=== PATIENT | female | born 1940 | race American Indian/Alaskan Native ===

== ENCOUNTER 2017-11-07 15:05 | Inpatient (IN) | payer MEDICARE ==
[2017-11-07 17:52] LABS: Basophils % (Auto) 0.5 % (0.0-1.8); Eosinophils # (Auto) 0.1 K/mm3 (0.0-0.4); Eosinophils % (Auto) 1.3 % (0.0-4.3); Hematocrit 24.2 % (30.3-42.9); Hemoglobin 7.6 gm/dl (10.1-14.3); Lymphocytes # (Auto) 2.4 K/mm3 (1.2-5.4); Lymphocytes % (Auto) 22.7 % (13.4-35.0); Mean Corpuscular HGB Conc 31 % (30-34); Mean Corpuscular Volume 77 fl (79-97); Monocytes # (Auto) 0.5 K/mm3 (0.0-0.8); Monocytes % (Auto) 5.1 % (0.0-7.3); Platelet Count 351 K/mm3 (140-440); Red Blood Count 3.14 M/mm3 (3.65-5.03)
[2017-11-07 18:01] LABS: Albumin 2.8 g/dL (3.9-5); Calcium 8.4 mg/dL (8.4-10.2)
[2017-11-07 18:03] LABS: Mean Corpuscular Hemoglobin 24 pg (28-32)
[2017-11-07] MEDS: NACL 0.9% 1000 ML 1,000 ML IV SCH (18:05)
--- NOTE | 2017-11-07 22:58 | History and Physical Report ---
History of Present Illness Date of examination: 11/07/17 Date of admission: 11/07/17 16:12 Chief complaint: CC Right foot Gangrene-sent as direct admit History of present illness: YSLETA DEL SUR:77 y/o AAF with multiple medical problems including HTN IDDM HLD CHF PN and Chronic pain sent from Dr Rodriguez office for Gangrene of Rt Foot and Possible BKA.Rt foot wound ongoing for a long time.Now Black and Tendons ewxposed on the footwith severly diminished pulses.Not amenable to revascularization. No fever or chills Past History Past Medical History: diabetes, GERD, heart failure, hypertension, hyperlipidemia, PVD Past Surgical History: Other (Not available) Social history: lives with family, smoking, full code Family history: hypertension Medications and Allergies Allergies Allergy/AdvReac Type Severity Reaction Status Date / Time hydralazine Allergy Unknown Verified 11/07/17 14:52 insulin aspart [From Novolog] Allergy Itching Unverified 11/07/17 16:13 Penicillins AdvReac Unknown Unverified 11/07/17 14:44 Home Medications Medication Instructions Recorded Confirmed Last Taken Type Clonidine 0.2 mg PO TID 11/07/17 11/07/17 11/07/17 09:00 History Clopidogrel Bisulfate [Plavix] 75 mg PO DAILY 11/07/17 11/07/17 11/07/17 09:00 History Gabapentin [Neurontin] 100 mg PO BID 11/07/17 11/07/17 11/07/17 09:00 History Insulin Detemir [Levemir VIAL] 5 units SQ 1700 11/07/17 11/07/17 11/06/17 17:00 History Insulin NPH Hum/Reg Insulin Hm 20 unit SQ QAC 11/07/17 11/07/17 Unknown History [HumuLIN 70-30 Vial] Labetalol [Normodyne TAB] 300 mg PO DAILY 11/07/17 11/07/17 11/07/17 09:00 History Lovastatin 20 mg PO HS 11/07/17 11/07/17 11/06/17 21:00 History Metolazone 5 mg PO DAILY 11/07/17 11/07/17 11/07/17 09:00 History Oxycodone HCl/Acetaminophen 1 tab PO Q6H PRN 11/07/17 11/07/17 Unknown History [Percocet 10/325 mg] Pantoprazole [Protonix] 40 mg PO QDAY 11/07/17 11/07/17 11/07/17 09:00 History Torsemide [Demadex] 20 mg PO DAILY 11/07/17 11/07/17 11/07/17 09:00 History Active Meds: Active Medications Sodium Chloride (Nacl 0.9% 1000 Ml) 1,000 mls @ 75 mls/hr IV DIRECT GANGA Last Admin: 11/07/17 18:05 Dose: 75 mls/hr Review of Systems All systems: negative Constitutional: fatigue, weakness, malaise, no weight loss, no weight gain, no fever, no chills Ears, nose, mouth and throat: no hoarseness, no sore throat Breasts: no deferred Cardiovascular: no chest pain, no orthopnea, no palpitations, no rapid/ irregular heart beat, no edema, no syncope, no lightheadedness, no shortness of breath Respiratory: no cough, no cough with sputum, no excessive sputum, no hemoptysis , no shortness of breath, no dyspnea on exertion Gastrointestinal: no abdominal pain, no nausea, no vomiting, no diarrhea, no constipation, no change in bowel habits Genitourinary Female: no dysuria, no urinary frequency, no urgency, no stress incontinence Rectal: no pain Musculoskeletal: no neck stiffness, no neck pain, no shooting arm pain, no arm numbness/tingling, no low back pain Integumentary: darkening of skin (Rt foot), foot/leg ulcers (c/w Gangrene) Exam - Constitutional Vitals: Temp Pulse Resp BP Pulse Ox 98.0 F 77 16 149/58 99 11/07/17 17:42 11/07/17 17:42 11/07/17 17:42 11/07/17 17:42 11/07/17 17:42 General appearance: Present: no acute distress, well-nourished - EENT Eyes: Present: PERRL ENT: hearing intact, clear oral mucosa - Neck Neck: Present: supple, normal ROM - Respiratory Respiratory effort: normal Respiratory: bilateral: CTA - Cardiovascular Heart rate: 70 Rhythm: regular Heart Sounds: Present: S1 & S2. Absent: rub, click - Extremities Extremities: abnormal Extremity abnormal: ulceration, black, pulses diminished, other (Gangrenous changes in Rt FOot christy forefoot) Peripheral Pulses: within normal limits - Abdominal General gastrointestinal: Present: soft, non-tender, non-distended, normal bowel sounds Female genitourinary: Present: normal - Rectal Rectal Exam: deferred - Integumentary Integumentary: Present: clear, warm, dry - Musculoskeletal Musculoskeletal: gait normal, strength equal bilaterally - Psychiatric Psychiatric: appropriate mood/affect, intact judgment & insight - Neurologic Neurologic: CNII-XII intact, moves all extremities - Allied Health Allied health notes reviewed: nursing, case management Results - Labs CBC & Chem 7: 11/08/17 00:59 11/08/17 00:59 Labs: Laboratory Last Values WBC 10.6 K/mm3 (4.5-11.0) 11/07/17 17: RBC 3.14 M/mm3 (3.65-5.03) L 11/07/17 17:19 Hgb 7.6 gm/dl (10.1-14.3) L 11/07/17 17: Hct 24.2 % (30.3-42.9) L 11/07/17 17:19 MCV 77 fl (79-97) L 11/07/17 17:19 MCH 24 pg (28-32) L 11/07/17 17:19 MCHC 31 % (30-34) 11/07/17 17:19 RDW 18.0 % (13.2-15.2) H 11/07/17 17:19 Plt Count 351 K/mm3 (140-440) 11/07/17 17:19 Lymph % (Auto) 22.7 % (13.4-35.0) 11/07/17 17:19 [place] % (Auto) 5.1 % (0.0-7.3) 11/07/17 17:19 Eos % (Auto) 1.3 % (0.0-4.3) 11/07/17 17:19 Baso % (Auto) 0.5 % (0.0-1.8) 11/07/17 17:19 Lymph # 2.4 K/mm3 (1.2-5.4) 11/07/17 17:19 [place] # 0.5 K/mm3 (0.0-0.8) 11/07/17 17:19 Eos # 0.1 K/mm3 (0.0-0.4) 11/07/17 17:19 Baso # 0.0 K/mm3 (0.0-0.1) 11/07/17 17:19 Seg Neutrophils % 70.4 % (40.0-70.0) H 11/07/17 17:19 Seg Neutrophils # 7.4 K/mm3 (1.8-7.7) 11/07/17 17:19 Sodium 129 mmol/L (137-145) L 11/07/17 17:15 Potassium 5.4 mmol/L (3.6-5.0) H 11/07/17 17:15 Chloride 92.3 mmol/L (98-107) L 11/07/17 17:15 Carbon Dioxide 25 mmol/L (22-30) 11/07/17 17:15 Anion Gap 17 mmol/L 11/07/17 17:15 BUN 21 mg/dL (7-17) H 11/07/17 17:15 Creatinine 1.8 mg/dL (0.7-1.2) H 11/07/17 17:15 Estimated GFR 33 ml/min 11/07/17 17:15 BUN/Creatinine Ratio 12 % 11/07/17 17:15 Glucose 359 mg/dL (65-100) H 11/07/17 17:15 POC Glucose 329 (70-105) H 11/07/17 17:52 Calcium 8.4 mg/dL (8.4-10.2) 11/07/17 17:15 Total Bilirubin 0.30 mg/dL (0.1-1.2) 11/07/17 17:15 AST 11 units/L (5-40) 11/07/17 17:15 ALT 9 units/L (7-56) 11/07/17 17:15 Alkaline Phosphatase 177 units/L (35-129) H 11/07/17 17:15 Total Protein 6.6 g/dL (6.3-8.2) 11/07/17 17:15 Albumin 2.8 g/dL (3.9-5) L 11/07/17 17:15 Albumin/Globulin Ratio 0.7 % 11/07/17 17:15 Assessment and Plan Advance Directives: Yes (Full code) VTE prophylaxis?: Chemical Plan of care discussed with patient/family: Yes - Patient Problems (1) Gangrene of right foot Current Visit: Yes Status: Acute Plan to address problem: Needs BKA Will defer to vascular surgery ID and Vascular surgery requested (2) Anemia Current Visit: Yes Status: Chronic Qualifiers: Anemia type: unspecified type Qualified Code(s): D64.9 - Anemia, unspecified Plan to address problem: Transfuse one unit for possible surgery (3) PAD (peripheral artery disease) Current Visit: Yes Status: Chronic Plan to address problem: Severe Vascular surgery consulted (4) IDDM (insulin dependent diabetes mellitus) Current Visit: Yes Status: Chronic Plan to address problem: Cont Insulin and coverage Check A1c (5) HTN (hypertension) Current Visit: Yes Status: Chronic Qualifiers: Hypertension type: essential hypertension Qualified Code(s): I10 - Essential (primary) hypertension Plan to address problem: Cont antihypertensives (6) GERD (gastroesophageal reflux disease) Current Visit: Yes Status: Chronic Qualifiers: Esophagitis presence: without esophagitis Qualified Code(s): K21.9 - Gastro -esophageal reflux disease without esophagitis Plan to address problem: Cont PPI's (7) CHF (congestive heart failure) Current Visit: Yes Status: Chronic Qualifiers: Heart failure type: combined systolic and diastolic Plan to address problem: Cont Torsemide (8) CAD (coronary artery disease) Current Visit: Yes Status: Chronic Qualifiers: Coronary Disease-Associated Artery/Lesion type: [place] artery [place] vs. transplanted heart: [place] heart Plan to address problem: will hold plavix for possible surgery (9) Peripheral neuropathy Current Visit: Yes Status: Chronic Qualifiers: Peripheral neuropathy type: polyneuropathy, unspecified Qualified Code(s): G62.9 - Polyneuropathy, unspecified Plan to address problem: Cont Gabapentin (10) Chronic pain Current Visit: Yes Status: Chronic Qualifiers: Chronic pain type: chronic pain syndrome Qualified Code(s): G89.4 - Chronic pain syndrome Plan to address problem: Cont Analgesics (11) DVT prophylaxis Current Visit: Yes Status: Acute Plan to address problem: On Heparin
[2017-11-08] MEDS ORDERED: NON-FORMULARY (Oxycodone Hcl/Acetaminophen [Percocet 10/325 Mg] 1 TAB) PO PRN (00:36)
[2017-11-08] MEDS ORDERED: TYLENOL PO PRN (00:38)
[2017-11-08] MEDS ORDERED: SODIUM CHLORIDE FLUSH SYRINGE 10 ML IV PRN (00:38)
[2017-11-08] MEDS ORDERED: ZOFRAN IV PRN (00:38)
[2017-11-08] MEDS ORDERED: AMBIEN PO PRN (00:38)
[2017-11-08] MEDS ORDERED: NACL 0.9% 500 ML 500 ML IV ONE (00:49)
[2017-11-08] MEDS ORDERED: MORPHINE IV PRN (00:54)
[2017-11-08] MEDS ORDERED: ROXICODONE PO PRN (00:57)
[2017-11-08] MEDS ORDERED: VANCOMYCIN PHARMACY TO DOSE IV SCH (01:00)
[2017-11-08] MEDS: NEURONTIN PO SCH ×4 (01:20→22:44)
[2017-11-08] MEDS: DILAUDID IV PRN (01:21)
[2017-11-08] MEDS ORDERED: VANCOMYCIN 1,500 MG in NACL 0.9% 500 ML 500 ML IV ONE (01:30)
[2017-11-08 01:47] LABS: Albumin 2.9 g/dL (3.9-5); Calcium 8.2 mg/dL (8.4-10.2)
[2017-11-08 01:53] LABS: Basophils % (Auto) 0.2 % (0.0-1.8); Eosinophils # (Auto) 0.3 K/mm3 (0.0-0.4); Eosinophils % (Auto) 2.5 % (0.0-4.3); Hematocrit 23.8 % (30.3-42.9); Hemoglobin 7.7 gm/dl (10.1-14.3); Lymphocytes # (Auto) 3.3 K/mm3 (1.2-5.4); Lymphocytes % (Auto) 32.7 % (13.4-35.0); Mean Corpuscular HGB Conc 33 % (30-34); Mean Corpuscular Volume 75 fl (79-97); Monocytes # (Auto) 0.7 K/mm3 (0.0-0.8); Monocytes % (Auto) 6.7 % (0.0-7.3); Platelet Count 348 K/mm3 (140-440); Red Blood Count 3.16 M/mm3 (3.65-5.03); Red Cell Distribution Width 17.8 % (13.2-15.2)
[2017-11-08 02:28] LABS: Mean Corpuscular Hemoglobin 25 pg (28-32)
[2017-11-08] MEDS ORDERED: NON-FORMULARY (Clonidine 0.2 MG) PO SCH (08:00)
--- NOTE | 2017-11-08 08:34 | Progress Note ---
Assessment and Plan 1) Gangrene of right foot Current Visit: Yes Status: Acute Plan to address problem: Local wound care. wound Cx IV antibiotic with Levaquin and Vanc Needs BKA Will defer to vascular surgery ID and Vascular surgery consulted (2) Anemia Current Visit: Yes Status: Chronic Qualifiers: Anemia type: unspecified type Qualified Code(s): D64.9 - Anemia, unspecified Plan to address problem: Transfused one unit for possible surgery. Post xfusion H and H (3) PAD (peripheral artery disease) Current Visit: Yes Status: Chronic Plan to address problem: Severe Vascular surgery consulted (4) IDDM (insulin dependent diabetes mellitus) Current Visit: Yes Status: Chronic Plan to address problem: ADA diet Cont Insulin and coverage Check A1c (5) HTN (hypertension) Current Visit: Yes Status: Chronic Qualifiers: Hypertension type: essential hypertension Qualified Code(s): I10 - Essential (primary) hypertension Plan to address problem: Cont antihypertensives (6) GERD (gastroesophageal reflux disease) Current Visit: Yes Status: Chronic Qualifiers: Esophagitis presence: without esophagitis Qualified Code(s): K21.9 - Gastro -esophageal reflux disease without esophagitis Plan to address problem: Cont PPI's (7) CHF (congestive heart failure) Current Visit: Yes Status: Chronic Qualifiers: Heart failure type: combined systolic and diastolic Plan to address problem: Cont Torsemide (8) CAD (coronary artery disease) Current Visit: Yes Status: Chronic Qualifiers: Coronary Disease-Associated Artery/Lesion type: [place] artery [place] vs. transplanted heart: [place] heart Plan to address problem: will hold plavix for possible surgery (9) Peripheral neuropathy Current Visit: Yes Status: Chronic Qualifiers: Peripheral neuropathy type: polyneuropathy, unspecified Qualified Code(s): G62.9 - Polyneuropathy, unspecified Plan to address problem: Cont Gabapentin (10) Chronic pain Current Visit: Yes Status: Chronic Qualifiers: Chronic pain type: chronic pain syndrome Qualified Code(s): G89.4 - Chronic pain syndrome Plan to address problem: Cont Analgesics (11) DVT prophylaxis Current Visit: Yes Status: Acute Plan to address problem: On Heparin Subjective Date of service: 11/08/17 Principal diagnosis: Gnagrene right foot, DM, PAD Interval history: No new complaint. Pt lying quietly in bed with her daughter in the room. Review laboratory and radiological data Objective - Constitutional Vitals: Vital Signs - 12hr 11/08/17 11/08/17 11/08/17 00:00 00:11 04:18 Temperature 98.3 F 98.0 F Pulse Rate 95 H 85 Respiratory 20 20 Rate Blood Pressure 156/73 153/63 O2 Sat by Pulse 99 99 Oximetry 11/08/17 07:42 Temperature 99.0 F Pulse Rate 82 Respiratory 18 Rate Blood Pressure 140/56 O2 Sat by Pulse 97 Oximetry General appearance: Present: no acute distress, well-nourished - EENT Eyes: PERRL, EOM intact - Neck Neck: supple, normal ROM - Respiratory Respiratory effort: normal Respiratory: bilateral: CTA - Cardiovascular Rhythm: regular Heart Sounds: Present: S1 & S2. Absent: gallop, rub Extremities: pulses intact, No edema, normal color, Full ROM - Gastrointestinal General gastrointestinal: Present: soft, non-tender, non-distended, normal bowel sounds - Integumentary Integumentary: clear, warm, dry - Musculoskeletal Musculoskeletal: 1, strength equal bilaterally - Neurologic Neurologic: moves all extremities - Psychiatric Psychiatric: memory intact, appropriate mood/affect, intact judgment & insight - Labs CBC & Chem 7: 11/08/17 00:59 11/08/17 00:59 Labs: Abnormal lab results 11/07/17 11/07/17 11/07/17 Range/Units 17:15 17:19 17:52 RBC 3.14 L (3.65-5.03) M/mm3 Hgb 7.6 L (10.1-14.3) gm/dl Hct 24.2 L (30.3-42.9) % MCV 77 L (79-97) fl MCH 24 L (28-32) pg RDW 18.0 H (13.2-15.2) % Seg Neutrophils % 70.4 H (40.0-70.0) % Sodium 129 L (137-145) mmol/L Potassium 5.4 H (3.6-5.0) mmol/L Chloride 92.3 L (98-107) mmol/L BUN 21 H (7-17) mg/dL Creatinine 1.8 H (0.7-1.2) mg/dL Glucose 359 H (65-100) mg/dL POC Glucose 329 H (70-105) Hemoglobin A1c (4-6) % Calcium (8.4-10.2) mg/dL Alkaline Phosphatase 177 H (35-129) units/L Total Protein (6.3-8.2) g/dL Albumin 2.8 L (3.9-5) g/dL Crossmatch 11/08/17 11/08/17 11/08/17 Range/Units 00:49 00:59 00:59 RBC 3.16 L (3.65-5.03) M/mm3 Hgb 7.7 L (10.1-14.3) gm/dl Hct 23.8 L (30.3-42.9) % MCV 75 L (79-97) fl MCH 25 L (28-32) pg RDW 17.8 H (13.2-15.2) % Seg Neutrophils % (40.0-70.0) % Sodium 133 L (137-145) mmol/L Potassium 5.1 H (3.6-5.0) mmol/L Chloride 94.6 L (98-107) mmol/L BUN 21 H (7-17) mg/dL Creatinine 1.9 H (0.7-1.2) mg/dL Glucose 128 H (65-100) mg/dL POC Glucose 176 H (70-105) Hemoglobin A1c (4-6) % Calcium 8.2 L (8.4-10.2) mg/dL Alkaline Phosphatase 172 H (35-129) units/L Total Protein 6.1 L (6.3-8.2) g/dL Albumin 2.9 L (3.9-5) g/dL Crossmatch 11/08/17 11/08/17 Range/Units 00:59 00:59 RBC (3.65-5.03) M/mm3 Hgb (10.1-14.3) gm/dl Hct (30.3-42.9) % MCV (79-97) fl MCH (28-32) pg RDW (13.2-15.2) % Seg Neutrophils % (40.0-70.0) % Sodium (137-145) mmol/L Potassium (3.6-5.0) mmol/L Chloride (98-107) mmol/L BUN (7-17) mg/dL Creatinine (0.7-1.2) mg/dL Glucose (65-100) mg/dL POC Glucose (70-105) Hemoglobin A1c 10.2 H (4-6) % Calcium (8.4-10.2) mg/dL Alkaline Phosphatase (35-129) units/L Total Protein (6.3-8.2) g/dL Albumin (3.9-5) g/dL Crossmatch See Detail
[2017-11-08] MEDS: CATAPRES PO SCH ×3 (08:43→22:44)
[2017-11-08] MEDS: PERCOCET 5/325 PO PRN (08:45)
--- NOTE | 2017-11-08 09:10 | Event Note ---
Date: 11/08/17 Patient is followed by [facility]. Hearing Stenographer and the nurse was informed to call the above group.
[2017-11-08] MEDS ORDERED: LEVAQUIN 750MG/150ML 750 MG/150 ML BAG IV SCH (10:00)
[2017-11-08] MEDS ORDERED: NON-FORMULARY (Metolazone 5 MG) PO SCH (10:00)
[2017-11-08] MEDS ORDERED: NON-FORMULARY (Torsemide [Demadex] 20 MG) PO SCH (10:00)
[2017-11-08] MEDS: LEVAQUIN 750MG/150ML 750 MG/150 ML BAG IV SCH (10:06)
[2017-11-08] MEDS: PROTONIX PO SCH (10:10)
[2017-11-08] MEDS: ZAROXOLYN PO SCH (10:10)
[2017-11-08] MEDS: SODIUM CHLORIDE FLUSH SYRINGE 10 ML IV SCH ×2 (10:11→22:48)
[2017-11-08] MEDS: DEMADEX PO SCH ×2 (10:11→10:30)
[2017-11-08] MEDS: NORMODYNE PO SCH (10:26)
--- NOTE | 2017-11-08 11:58 | Consultation ---
History of Present Illness - Reason for Consult Consult date: 11/08/17 right foot gangrene Requesting physician: EMMA SEBASTIAN - History of Present Illness 77 years old female with history of HTN, DM2, CHF, PVD s/p revascularization 2 weeks ago; sent from Dr Rodriguez office for Gangrene of Rt Foot and Possible BKA. Initial necrotic changes started back in Jun 2017. Wound is now black extending to the whole forefoot and tendon exposure. The patient and daughter, patient has not been any fever, chills, nausea, vomiting, diarrhea. In the emergency room, initial temperature was 98, heart rate 77, respirations 16, blood pressure 149/58. Initial white count 10.6. Hemoglobin 7.6. Platelets 351. Creatinine 1.8. A1c 10.2. Sodium 129. Microbiology: none Current Antimicrobials: Levaquin Vancomycin Previous Antimicrobials: Past History Past Medical History: diabetes, GERD, heart failure, hypertension, hyperlipidemia, PVD Past Surgical History: Other (Not available) Social history: lives with family, smoking, full code Family history: hypertension Medications and Allergies Allergies Allergy/AdvReac Type Severity Reaction Status Date / Time hydralazine Allergy Unknown Verified 11/07/17 14:52 insulin aspart [From Novolog] Allergy Itching Unverified 11/07/17 16:13 Penicillins AdvReac Unknown Unverified 11/07/17 14:44 Home Medications Medication Instructions Recorded Confirmed Last Taken Type Clonidine 0.2 mg PO TID 11/07/17 11/07/17 11/07/17 09:00 History Clopidogrel Bisulfate [Plavix] 75 mg PO DAILY 11/07/17 11/07/17 11/07/17 09:00 History Gabapentin [Neurontin] 100 mg PO BID 11/07/17 11/07/17 11/07/17 09:00 History Insulin Detemir [Levemir VIAL] 5 units SQ 1700 11/07/17 11/07/17 11/06/17 17:00 History Insulin NPH Hum/Reg Insulin Hm 20 unit SQ QAC 11/07/17 11/07/17 Unknown History [HumuLIN 70-30 Vial] Labetalol [Normodyne TAB] 300 mg PO DAILY 11/07/17 11/07/17 11/07/17 09:00 History Lovastatin 20 mg PO HS 11/07/17 11/07/1718 21:00 History Metolazone 5 mg PO DAILY 11/07/17 11/07/17 11/07/17 09:00 History Oxycodone HCl/Acetaminophen 1 tab PO Q6H PRN 11/07/17 11/07/17 Unknown History [Percocet 10/325 mg] Pantoprazole [Protonix] 40 mg PO QDAY 11/07/17 11/07/17 11/07/17 09:00 History Torsemide [Demadex] 20 mg PO DAILY 11/07/17 11/07/17 11/07/17 09:00 History Active Meds: Active Medications Acetaminophen (Tylenol) 650 mg PO Q4H PRN PRN Reason: Pain MILD(1-3)/Fever >100.5/RONDON Clonidine HCl (Catapres) 0.2 mg PO TID [facility] Last Admin: 11/08/17 08:43 Dose: 0.2 mg Gabapentin (Neurontin) 100 mg PO BID [facility] Last Admin: 11/08/17 10:30 Dose: Not Given Hydromorphone HCl (Dilaudid) 1 mg IV Q3H PRN PRN Reason: Pain , Severe (7-10) Last Admin: 11/08/17 01:21 Dose: 1 mg Sodium Chloride (Nacl 0.9% 1000 Ml) 1,000 mls @ 75 mls/hr IV DIRECT GANGA Last Admin: 11/07/17 18:05 Dose: 75 mls/hr Levofloxacin/Dextrose (Levaquin 750mg/150ml) 750 mg in 150 mls @ 100 mls/hr IV Q48HR [facility]; Protocol Last Admin: 11/08/17 10:06 Dose: 100 mls/hr Insulin Glargine (Lantus) 20 units SUB-Q QHS [facility] Labetalol HCl (Normodyne) 300 mg PO DAILY [facility] Last Admin: 11/08/17 10:26 Dose: 300 mg Metolazone (Zaroxolyn) 5 mg PO QDAY [facility] Last Admin: 11/08/17 10:10 Dose: 5 mg Morphine Sulfate (Morphine) 2 mg IV Q4H PRN PRN Reason: Pain, Moderate (4-6) Ondansetron HCl (Zofran) 4 mg IV Q8H PRN PRN Reason: Nausea And Vomiting Last Admin: 11/08/17 10:18 Dose: 4 mg Oxycodone HCl (Roxicodone) 5 mg PO Q6H PRN PRN Reason: Pain, Moderate (4-6) Oxycodone/Acetaminophen (Percocet 5/325) 1 tab PO Q6H PRN PRN Reason: Pain, Moderate (4-6) Last Admin: 11/08/17 08:45 Dose: 1 tab Pantoprazole Sodium (Protonix) 40 mg PO QDAY GANGA Last Admin: 11/08/17 10:10 Dose: 40 mg Pravastatin Sodium (Pravachol) 20 mg PO QHS GANGA Sodium Chloride (Sodium Chloride Flush Syringe 10 Ml) 10 ml IV PRN PRN PRN Reason: LINE FLUSH Sodium Chloride (Sodium Chloride Flush Syringe 10 Ml) 10 ml IV BID [facility] Last Admin: 11/08/17 10:11 Dose: 10 ml Torsemide (Demadex) 20 mg PO DAILY GANGA Vancomycin HCl (Vancomycin Pharmacy To Dose) 1 each IV PKCONSULT GANGA; Protocol Zolpidem Tartrate (Ambien) 5 mg PO QHS PRN PRN Reason: Insomnia Review of Systems All systems: negative (as per HPI Rest of 10 point review of systems negative) Physical Examination - Physical Exam Narrative exam: General appearance: Alert in NAD, conversant Eyes: anicteric sclerae, moist conjunctivae; no lid-lag; PERRLA HENT: Atraumatic; oropharynx clear Neck: Trachea midline; supple, no thyromegaly or lymphadenopathy Lungs: CTA, with normal respiratory effort and no intercostal retractions CV: RRR, no murmurs Abdomen: Soft, non-tender; no masses or hepatosplenomegaly Extremities: right fore foot severe necrotic changes involving all toes and forefoot dry gangrene appearance. No drainage. No pulses Skin: Normal temperature, turgor and texture; no rash, ulcers or subcutaneous nodules Psych: Appropriate affect, alert and oriented to person, place and time. Neuro: alert and oriented x 3. Moving all extermities Lines: No CVL / PICC - Constitutional Vitals: Vital Signs Temp Pulse Resp BP Pulse Ox 99.0 F 84 20 157/50 97 11/08/17 07:42 11/08/17 10:26 11/08/17 10:00 11/08/17 10:26 11/08/17 10:00 Temperature -Last 24 Hours Temperature 99.0 F Temperature 98.0 F Temperature 98.3 F Temperature 98.0 F Results - Labs CBC & Chem 7: 11/08/17 00:59 11/08/17 00:59 Labs: Abnormal lab results 11/07/17 11/07/17 11/07/17 Range/Units 17:15 17:19 17:52 RBC 3.14 L (3.65-5.03) M/mm3 Hgb 7.6 L (10.1-14.3) gm/dl Hct 24.2 L (30.3-42.9) % MCV 77 L (79-97) fl MCH 24 L (28-32) pg RDW 18.0 H (13.2-15.2) % Seg Neutrophils % 70.4 H (40.0-70.0) % Sodium 129 L (137-145) mmol/L Potassium 5.4 H (3.6-5.0) mmol/L Chloride 92.3 L (98-107) mmol/L BUN 21 H (7-17) mg/dL Creatinine 1.8 H (0.7-1.2) mg/dL Glucose 359 H (65-100) mg/dL POC Glucose 329 H (70-105) Hemoglobin A1c (4-6) % Calcium (8.4-10.2) mg/dL Alkaline Phosphatase 177 H (35-129) units/L Total Protein (6.3-8.2) g/dL Albumin 2.8 L (3.9-5) g/dL Crossmatch 11/08/17 11/08/17 11/08/17 Range/Units 00:49 00:59 00:59 RBC 3.16 L (3.65-5.03) M/mm3 Hgb 7.7 L (10.1-14.3) gm/dl Hct 23.8 L (30.3-42.9) % MCV 75 L (79-97) fl MCH 25 L (28-32) pg RDW 17.8 H (13.2-15.2) % Seg Neutrophils % (40.0-70.0) % Sodium 133 L (137-145) mmol/L Potassium 5.1 H (3.6-5.0) mmol/L Chloride 94.6 L (98-107) mmol/L BUN 21 H (7-17) mg/dL Creatinine 1.9 H (0.7-1.2) mg/dL Glucose 128 H (65-100) mg/dL POC Glucose 176 H (70-105) Hemoglobin A1c (4-6) % Calcium 8.2 L (8.4-10.2) mg/dL Alkaline Phosphatase 172 H (35-129) units/L Total Protein 6.1 L (6.3-8.2) g/dL Albumin 2.9 L (3.9-5) g/dL Crossmatch 11/08/17 11/08/17 11/08/17 Range/Units 00:59 00:59 07:49 RBC (3.65-5.03) M/mm3 Hgb (10.1-14.3) gm/dl Hct (30.3-42.9) % MCV (79-97) fl MCH (28-32) pg RDW (13.2-15.2) % Seg Neutrophils % (40.0-70.0) % Sodium (137-145) mmol/L Potassium (3.6-5.0) mmol/L Chloride (98-107) mmol/L BUN (7-17) mg/dL Creatinine (0.7-1.2) mg/dL Glucose (65-100) mg/dL POC Glucose 228 H (70-105) Hemoglobin A1c 10.2 H (4-6) % Calcium (8.4-10.2) mg/dL Alkaline Phosphatase (35-129) units/L Total Protein (6.3-8.2) g/dL Albumin (3.9-5) g/dL Crossmatch See Detail 11/08/17 Range/Units 11:25 RBC (3.65-5.03) M/mm3 Hgb (10.1-14.3) gm/dl Hct (30.3-42.9) % MCV (79-97) fl MCH (28-32) pg RDW (13.2-15.2) % Seg Neutrophils % (40.0-70.0) % Sodium (137-145) mmol/L Potassium (3.6-5.0) mmol/L Chloride (98-107) mmol/L BUN (7-17) mg/dL Creatinine (0.7-1.2) mg/dL Glucose (65-100) mg/dL POC Glucose 288 H (70-105) Hemoglobin A1c (4-6) % Calcium (8.4-10.2) mg/dL Alkaline Phosphatase (35-129) units/L Total Protein (6.3-8.2) g/dL Albumin (3.9-5) g/dL Crossmatch Assessment and Plan Assessment: 1) Right forefoot dry gangrene: from severe PVD 2) DM-uncontrolled 3) JESU 4) Anemai 5) Hyponatremia Plan: -continue levaquin -stop vanco in view of JESU -start IV clinda -needs BKA Thank you for your consultation, will follow up with you. Sylvia Myers MD Infectious Diseases Specialist [facility] ([facility] M [phone] O [phone]
--- NOTE | 2017-11-08 12:06 | Consultation ---
History of Present Illness - Reason for Consult Consult date: 11/08/17 (consult dictated) Past History Past Medical History: diabetes, GERD, heart failure, hypertension, hyperlipidemia, PVD Past Surgical History: Other (Not available) Social history: lives with family, smoking, full code Family history: hypertension Medications and Allergies Allergies Allergy/AdvReac Type Severity Reaction Status Date / Time hydralazine Allergy Unknown Verified 11/07/17 14:52 insulin aspart [From Novolog] Allergy Itching Verified 11/08/17 14:25 Penicillins AdvReac Unknown Verified 11/08/17 14:25 Home Medications Medication Instructions Recorded Confirmed Last Taken Type Clonidine 0.2 mg PO TID 11/07/17 11/07/17 11/07/17 09:00 History Clopidogrel Bisulfate [Plavix] 75 mg PO DAILY 11/07/17 11/07/17 11/07/17 09:00 History Gabapentin [Neurontin] 100 mg PO BID 11/07/17 11/07/17 11/07/17 09:00 History Insulin Detemir [Levemir VIAL] 5 units SQ 1700 11/07/17 11/07/17 11/06/17 17:00 History Insulin NPH Hum/Reg Insulin Hm 20 unit SQ QAC 11/07/17 11/07/17 Unknown History [HumuLIN 70-30 Vial] Labetalol [Normodyne TAB] 300 mg PO DAILY 11/07/17 11/07/17 11/07/17 09:00 History Lovastatin 20 mg PO HS 11/07/17 11/07/17 11/06/17 21:00 History Metolazone 5 mg PO DAILY 11/07/17 11/07/17 11/07/17 09:00 History Oxycodone HCl/Acetaminophen 1 tab PO Q6H PRN 11/07/17 11/07/17 Unknown History [Percocet 10/325 mg] Pantoprazole [Protonix] 40 mg PO QDAY 11/07/17 11/07/17 11/07/17 09:00 History Torsemide [Demadex] 20 mg PO DAILY 11/07/17 11/07/17 11/07/17 09:00 History Lactulose [Cephulac] 20 gm PO BID 11/08/17 11/08/17 Unknown History Active Meds: Active Medications Acetaminophen (Tylenol) 650 mg PO Q4H PRN PRN Reason: Pain MILD(1-3)/Fever >100.5/RONDON Clonidine HCl (Catapres) 0.2 mg PO TID [facility] Last Admin: 11/08/17 08:43 Dose: 0.2 mg Gabapentin (Neurontin) 100 mg PO BID [facility] Last Admin: 11/08/17 10:30 Dose: Not Given Hydromorphone HCl (Dilaudid) 1 mg IV Q3H PRN PRN Reason: Pain , Severe (7-10) Last Admin: 11/08/17 01:21 Dose: 1 mg Sodium Chloride (Nacl 0.9% 1000 Ml) 1,000 mls @ 75 mls/hr IV DIRECT [facility] Last Admin: 11/07/17 18:05 Dose: 75 mls/hr Levofloxacin/Dextrose (Levaquin 750mg/150ml) 750 mg in 150 mls @ 100 mls/hr IV Q48HR [facility]; Protocol Last Admin: 11/08/17 10:06 Dose: 100 mls/hr Insulin Glargine (Lantus) 20 units SUB-Q QHS [facility] Labetalol HCl (Normodyne) 300 mg PO DAILY [facility] Last Admin: 11/08/17 10:26 Dose: 300 mg Metolazone (Zaroxolyn) 5 mg PO QDAY [facility] Last Admin: 11/08/17 10:10 Dose: 5 mg Morphine Sulfate (Morphine) 2 mg IV Q4H PRN PRN Reason: Pain, Moderate (4-6) Ondansetron HCl (Zofran) 4 mg IV Q8H PRN PRN Reason: Nausea And Vomiting Last Admin: 11/08/17 10:18 Dose: 4 mg Oxycodone HCl (Roxicodone) 5 mg PO Q6H PRN PRN Reason: Pain, Moderate (4-6) Oxycodone/Acetaminophen (Percocet 5/325) 1 tab PO Q6H PRN PRN Reason: Pain, Moderate (4-6) Last Admin: 11/08/17 08:45 Dose: 1 tab Pantoprazole Sodium (Protonix) 40 mg PO QDAY [facility] Last Admin: 11/08/17 10:10 Dose: 40 mg Pravastatin Sodium (Pravachol) 20 mg PO QHS [facility] Sodium Chloride (Sodium Chloride Flush Syringe 10 Ml) 10 ml IV PRN PRN PRN Reason: LINE FLUSH Sodium Chloride (Sodium Chloride Flush Syringe 10 Ml) 10 ml IV BID [facility] Last Admin: 11/08/17 10:11 Dose: 10 ml Torsemide (Demadex) 20 mg PO DAILY [facility] Vancomycin HCl (Vancomycin Pharmacy To Dose) 1 each IV PKCONSULT [facility]; Protocol Zolpidem Tartrate (Ambien) 5 mg PO QHS PRN PRN Reason: Insomnia Exam - Constitutional Vitals: Temp Pulse Resp BP Pulse Ox 99.0 F 84 20 157/50 97 11/08/17 07:42 11/08/17 10:26 11/08/17 10:00 11/08/17 10:26 11/08/17 10:00 Results - Labs CBC & Chem 7: 11/08/17 00:59 11/08/17 00:59 Labs: Abnormal lab results 11/07/17 11/07/17 11/07/17 Range/Units 17:15 17:19 17:52 RBC 3.14 L (3.65-5.03) M/mm3 Hgb 7.6 L (10.1-14.3) gm/dl Hct 24.2 L (30.3-42.9) % MCV 77 L (79-97) fl MCH 24 L (28-32) pg RDW 18.0 H (13.2-15.2) % Seg Neutrophils % 70.4 H (40.0-70.0) % Sodium 129 L (137-145) mmol/L Potassium 5.4 H (3.6-5.0) mmol/L Chloride 92.3 L (98-107) mmol/L BUN 21 H (7-17) mg/dL Creatinine 1.8 H (0.7-1.2) mg/dL Glucose 359 H (65-100) mg/dL POC Glucose 329 H (70-105) Hemoglobin A1c (4-6) % Calcium (8.4-10.2) mg/dL Alkaline Phosphatase 177 H (35-129) units/L Total Protein (6.3-8.2) g/dL Albumin 2.8 L (3.9-5) g/dL Crossmatch 11/08/17 11/08/17 11/08/17 Range/Units 00:49 00:59 00:59 RBC 3.16 L (3.65-5.03) M/mm3 Hgb 7.7 L (10.1-14.3) gm/dl Hct 23.8 L (30.3-42.9) % MCV 75 L (79-97) fl MCH 25 L (28-32) pg RDW 17.8 H (13.2-15.2) % Seg Neutrophils % (40.0-70.0) % Sodium 133 L (137-145) mmol/L Potassium 5.1 H (3.6-5.0) mmol/L Chloride 94.6 L (98-107) mmol/L BUN 21 H (7-17) mg/dL Creatinine 1.9 H (0.7-1.2) mg/dL Glucose 128 H (65-100) mg/dL POC Glucose 176 H (70-105) Hemoglobin A1c (4-6) % Calcium 8.2 L (8.4-10.2) mg/dL Alkaline Phosphatase 172 H (35-129) units/L Total Protein 6.1 L (6.3-8.2) g/dL Albumin 2.9 L (3.9-5) g/dL Crossmatch 11/08/17 11/08/17 11/08/17 Range/Units 00:59 00:59 07:49 RBC (3.65-5.03) M/mm3 Hgb (10.1-14.3) gm/dl Hct (30.3-42.9) % MCV (79-97) fl MCH (28-32) pg RDW (13.2-15.2) % Seg Neutrophils % (40.0-70.0) % Sodium (137-145) mmol/L Potassium (3.6-5.0) mmol/L Chloride (98-107) mmol/L BUN (7-17) mg/dL Creatinine (0.7-1.2) mg/dL Glucose (65-100) mg/dL POC Glucose 228 H (70-105) Hemoglobin A1c 10.2 H (4-6) % Calcium (8.4-10.2) mg/dL Alkaline Phosphatase (35-129) units/L Total Protein (6.3-8.2) g/dL Albumin (3.9-5) g/dL Crossmatch See Detail 11/08/17 Range/Units 11:25 RBC (3.65-5.03) M/mm3 Hgb (10.1-14.3) gm/dl Hct (30.3-42.9) % MCV (79-97) fl MCH (28-32) pg RDW (13.2-15.2) % Seg Neutrophils % (40.0-70.0) % Sodium (137-145) mmol/L Potassium (3.6-5.0) mmol/L Chloride (98-107) mmol/L BUN (7-17) mg/dL Creatinine (0.7-1.2) mg/dL Glucose (65-100) mg/dL POC Glucose 288 H (70-105) Hemoglobin A1c (4-6) % Calcium (8.4-10.2) mg/dL Alkaline Phosphatase (35-129) units/L Total Protein (6.3-8.2) g/dL Albumin (3.9-5) g/dL Crossmatch
[2017-11-08] MEDS ORDERED: MILK OF MAGNESIA PO PRN (13:58)
[2017-11-08] MEDS: CEPHULAC PO SCH ×2 (14:48→22:44)
[2017-11-08] MEDS: CLEOCIN 600 MG/50 mL 600 MG/50 ML BAG IV SCH ×2 (15:03→22:43)
--- NOTE | 2017-11-08 15:43 | Consultation ---
History of Present Illness - Reason for Consult Consult date: 11/08/17 - History of Present Illness This patient is a 77-year-old Latvian female that was admitted on 11/07/2017 due to performed year-old disease with gangrenous changes to her right lower extremity. She's had progressive gangrenous changes since June 2017. An amputation was recommended. The patient and family initially refused, but now agree to proceed. Following admission an infectious disease, nephrology, and vascular surgery consultation have been requested to further evaluate. Past History Past Medical History: diabetes, GERD, heart failure, hypertension, hyperlipidemia, PVD Past Surgical History: Other (none listed) Social history: lives with family, smoking, full code Family history: hypertension Medications and Allergies Allergies Allergy/AdvReac Type Severity Reaction Status Date / Time hydralazine Allergy Unknown Verified 11/07/17 14:52 insulin aspart [From Novolog] Allergy Itching Verified 11/08/17 14:25 Penicillins AdvReac Unknown Verified 11/08/17 14:25 Home Medications Medication Instructions Recorded Confirmed Last Taken Type Clonidine 0.2 mg PO TID 11/07/17 11/07/17 11/07/17 09:00 History Clopidogrel Bisulfate [Plavix] 75 mg PO DAILY 11/07/17 11/07/17 11/07/17 09:00 History Gabapentin [Neurontin] 100 mg PO BID 11/07/17 11/07/17 11/07/17 09:00 History Insulin Detemir [Levemir VIAL] 5 units SQ 1700 11/07/17 11/07/17 11/06/17 17:00 History Insulin NPH Hum/Reg Insulin Hm 20 unit SQ QAC 11/07/17 11/07/17 Unknown History [HumuLIN 70-30 Vial] Labetalol [Normodyne TAB] 300 mg PO DAILY 11/07/17 11/07/17 11/07/17 09:00 History Lovastatin 20 mg PO HS 11/07/17 11/07/17 11/06/17 21:00 History Metolazone 5 mg PO DAILY 11/07/17 11/07/17 11/07/17 09:00 History Oxycodone HCl/Acetaminophen 1 tab PO Q6H PRN 11/07/17 11/07/17 Unknown History [Percocet 10/325 mg] Pantoprazole [Protonix] 40 mg PO QDAY 11/07/17 11/07/17 11/07/17 09:00 History Torsemide [Demadex] 20 mg PO DAILY 11/07/17 11/07/17 11/07/17 09:00 History Lactulose [Cephulac] 20 gm PO BID 11/08/17 11/08/17 Unknown History Active Meds: Active Medications Acetaminophen (Tylenol) 650 mg PO Q4H PRN PRN Reason: Pain MILD(1-3)/Fever >100.5/RONDON Clonidine HCl (Catapres) 0.2 mg PO TID [facility] Last Admin: 11/08/17 13:58 Dose: Not Given Gabapentin (Neurontin) 100 mg PO BID [facility] Last Admin: 11/08/17 10:30 Dose: Not Given Hydromorphone HCl (Dilaudid) 1 mg IV Q3H PRN PRN Reason: Pain , Severe (7-10) Last Admin: 11/08/17 01:21 Dose: 1 mg Sodium Chloride (Nacl 0.9% 1000 Ml) 1,000 mls @ 75 mls/hr IV DIRECT [facility] Last Admin: 11/07/17 18:05 Dose: 75 mls/hr Levofloxacin/Dextrose (Levaquin 750mg/150ml) 750 mg in 150 mls @ 100 mls/hr IV Q48HR [facility]; Protocol Last Admin: 11/08/17 10:06 Dose: 100 mls/hr Clindamycin HCl (Cleocin 600 Mg/50 Ml) 600 mg in 50 mls @ 100 mls/hr IV Q8H [facility] ; Protocol Last Admin: 11/08/17 15:03 Dose: 100 mls/hr Insulin Glargine (Lantus) 20 units SUB-Q QHS [facility] Insulin Human Isoph/Insulin Regular (Humulin 70/30) 20 unit SUB-Q AC [facility] Labetalol HCl (Normodyne) 300 mg PO DAILY [facility] Last Admin: 11/08/17 10:26 Dose: 300 mg Lactulose (Cephulac) 20 gm PO BID [facility] Last Admin: 11/08/17 14:48 Dose: 20 gm Metolazone (Zaroxolyn) 5 mg PO QDAY [facility] Last Admin: 11/08/17 10:10 Dose: 5 mg Morphine Sulfate (Morphine) 2 mg IV Q4H PRN PRN Reason: Pain, Moderate (4-6) Ondansetron HCl (Zofran) 4 mg IV Q8H PRN PRN Reason: Nausea And Vomiting Last Admin: 11/08/17 10:18 Dose: 4 mg Oxycodone HCl (Roxicodone) 5 mg PO Q6H PRN PRN Reason: Pain, Moderate (4-6) Oxycodone/Acetaminophen (Percocet 5/325) 1 tab PO Q6H PRN PRN Reason: Pain, Moderate (4-6) Last Admin: 11/08/17 08:45 Dose: 1 tab Pantoprazole Sodium (Protonix) 40 mg PO QDAY [facility] Last Admin: 11/08/17 10:10 Dose: 40 mg Pravastatin Sodium (Pravachol) 20 mg PO QHS [facility] Sodium Chloride (Sodium Chloride Flush Syringe 10 Ml) 10 ml IV PRN PRN PRN Reason: LINE FLUSH Sodium Chloride (Sodium Chloride Flush Syringe 10 Ml) 10 ml IV BID [facility] Last Admin: 11/08/17 10:11 Dose: 10 ml Torsemide (Demadex) 20 mg PO DAILY [facility] Last Admin: 11/08/17 10:30 Dose: Not Given Zolpidem Tartrate (Ambien) 5 mg PO QHS PRN PRN Reason: Insomnia Review of Systems All systems: negative Exam - Constitutional Vitals: Temp Pulse Resp BP Pulse Ox 98.0 F 71 18 141/43 97 11/08/17 14:37 11/08/17 14:37 11/08/17 14:37 11/08/17 14:37 11/08/17 14:37 General appearance: Present: no acute distress - EENT Eyes: Present: EOM intact ENT: hearing intact - Neck Neck: Present: supple - Respiratory Respiratory effort: normal - Extremities Extremity abnormal: black (necrotic changes to the right fore to midfoot, no erythema or drainage appreciated) - Psychiatric Psychiatric: appropriate mood/affect, intact judgment & insight, cooperative - Neurologic Neurologic: no focal deficits Results - Labs CBC & Chem 7: 11/08/17 00:59 11/08/17 00:59 Labs: Abnormal lab results 11/07/17 11/07/17 11/07/17 Range/Units 17:15 17:19 17:52 RBC 3.14 L (3.65-5.03) M/mm3 Hgb 7.6 L (10.1-14.3) gm/dl Hct 24.2 L (30.3-42.9) % MCV 77 L (79-97) fl MCH 24 L (28-32) pg RDW 18.0 H (13.2-15.2) % Seg Neutrophils % 70.4 H (40.0-70.0) % Sodium 129 L (137-145) mmol/L Potassium 5.4 H (3.6-5.0) mmol/L Chloride 92.3 L (98-107) mmol/L BUN 21 H (7-17) mg/dL Creatinine 1.8 H (0.7-1.2) mg/dL Glucose 359 H (65-100) mg/dL POC Glucose 329 H (70-105) Hemoglobin A1c (4-6) % Calcium (8.4-10.2) mg/dL Alkaline Phosphatase 177 H (35-129) units/L Total Protein (6.3-8.2) g/dL Albumin 2.8 L (3.9-5) g/dL Crossmatch 11/08/17 11/08/17 11/08/17 Range/Units 00:49 00:59 00:59 RBC 3.16 L (3.65-5.03) M/mm3 Hgb 7.7 L (10.1-14.3) gm/dl Hct 23.8 L (30.3-42.9) % MCV 75 L (79-97) fl MCH 25 L (28-32) pg RDW 17.8 H (13.2-15.2) % Seg Neutrophils % (40.0-70.0) % Sodium 133 L (137-145) mmol/L Potassium 5.1 H (3.6-5.0) mmol/L Chloride 94.6 L (98-107) mmol/L BUN 21 H (7-17) mg/dL Creatinine 1.9 H (0.7-1.2) mg/dL Glucose 128 H (65-100) mg/dL POC Glucose 176 H (70-105) Hemoglobin A1c (4-6) % Calcium 8.2 L (8.4-10.2) mg/dL Alkaline Phosphatase 172 H (35-129) units/L Total Protein 6.1 L (6.3-8.2) g/dL Albumin 2.9 L (3.9-5) g/dL Crossmatch 11/08/17 11/08/17 11/08/17 Range/Units 00:59 00:59 07:49 RBC (3.65-5.03) M/mm3 Hgb (10.1-14.3) gm/dl Hct (30.3-42.9) % MCV (79-97) fl MCH (28-32) pg RDW (13.2-15.2) % Seg Neutrophils % (40.0-70.0) % Sodium (137-145) mmol/L Potassium (3.6-5.0) mmol/L Chloride (98-107) mmol/L BUN (7-17) mg/dL Creatinine (0.7-1.2) mg/dL Glucose (65-100) mg/dL POC Glucose 228 H (70-105) Hemoglobin A1c 10.2 H (4-6) % Calcium (8.4-10.2) mg/dL Alkaline Phosphatase (35-129) units/L Total Protein (6.3-8.2) g/dL Albumin (3.9-5) g/dL Crossmatch See Detail 11/08/17 Range/Units 11:25 RBC (3.65-5.03) M/mm3 Hgb (10.1-14.3) gm/dl Hct (30.3-42.9) % MCV (79-97) fl MCH (28-32) pg RDW (13.2-15.2) % Seg Neutrophils % (40.0-70.0) % Sodium (137-145) mmol/L Potassium (3.6-5.0) mmol/L Chloride (98-107) mmol/L BUN (7-17) mg/dL Creatinine (0.7-1.2) mg/dL Glucose (65-100) mg/dL POC Glucose 288 H (70-105) Hemoglobin A1c (4-6) % Calcium (8.4-10.2) mg/dL Alkaline Phosphatase (35-129) units/L Total Protein (6.3-8.2) g/dL Albumin (3.9-5) g/dL Crossmatch Assessment and Plan The patient was admitted with gangrenous changes to the right lower extremity. Her foot does not appear to be salvageable. She will require a below the knee amputation. The risks benefits and alternatives have been discussed in great detail with the patient and her daughter. They have stated understanding and agreed to proceed. - Patient Problems (1) Atherosclerosis of [place] arteries of the extremities with gangrene Current Visit: Yes Status: Acute (2) HTN (hypertension) Current Visit: Yes Status: Chronic Qualifiers: Hypertension type: essential hypertension Qualified Code(s): I10 - Essential (primary) hypertension (3) IDDM (insulin dependent diabetes mellitus) Current Visit: Yes Status: Chronic
--- NOTE | 2017-11-08 17:28 | Anesthesia Consultation ---
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
[2017-11-08] MEDS: NACL 0.9% 1000 ML 1,000 ML IV SCH (17:59)
--- NOTE | 2017-11-08 21:21 | Consultation ---
REASON FOR CONSULTATION: Acute renal failure. HISTORY OF PRESENT ILLNESS: This 77-year-old -[place] female with hypertension, type 2 diabetes, congestive heart failure, chronic kidney disease, peripheral vascular disease, who was admitted for right foot gangrene and being planned on right below-knee amputation. The patient is known to our service for many years. Her renal function mentation has been in CKD, stage 3. The patient speaks Cymra[place]. Her daughter is the candy vendor at bedside. PAST MEDICAL HISTORY: Type 2 diabetes, hypertension, congestive heart failure, peripheral vascular disease, gastroesophageal reflux disease. PERSONAL HISTORY: No history of smoking or alcohol or drug abuse. FAMILY HISTORY: No family history of kidney failure. ALLERGIES: HYDRALAZINE, INSULIN ____ AND PENICILLIN. CURRENT MEDICATIONS: Clindamycin 600 mg q. 8 hours, clonidine 0.2 mg 3 times a day, Neurontin 100 mg p.o. b.i.d., insulin, labetalol 300 mg, metolazone 5 mg once a day, Protonix 40 mg a day, pravastatin 20 mg a day, Demadex 20 mg a day. REVIEW OF SYSTEMS: Complaints of generalized weakness and tiredness. Complaints of pain in the right leg. Denies fever or chills. Appetite poor. Has intermittent nausea. Denies dysuria or hematuria. Other review of systems is reviewed and negative. PHYSICAL EXAMINATION: GENERAL: The patient is alert, oriented, chronically ill looking, pleasant female, not in acute distress. VITAL SIGNS: Blood pressure 134/42, pulse 70, afebrile. HEENT: Head: Normocephalic. Eyes: Pupils reactive. Conjunctivae pale. Oral mucosa and tongue are dry. Lips noncyanotic. NECK: No JVD, no thyroid enlargement. LUNGS: Clear. HEART: S1, S2 regular. A 2/6 systolic murmur along left sternal border. ABDOMEN: Soft, bowel sounds present, nontender. EXTREMITIES: Right foot dry gangrenous changes noted. LABORATORY DATA: WBC is 10.1, hemoglobin 7.7, hematocrit 23.8, platelets 348. Sodium is 133, potassium 5.1, chloride 94, CO2 23, BUN 21, creatinine 1.9, glucose 176. Hemoglobin A1c 10.2, albumin 2.9. ASSESSMENT AND PLAN: 1. [id number]-dublwfb kidney disease, stage 3. The patient probably may have prerenal component. 2. Peripheral vascular disease, right foot gangrene. 3. Severe symptomatic anemia. 4. Mild hyperkalemia. 5. Type 2 diabetes with hyperglycemia. 6. Mild hyponatremia due to hyperglycemia. 7. Hypoalbuminemia. Adjust medications per renal function. The patient is currently on 2 diuretics, monitor renal function closely. Packed RBC transfusion as ordered. Discussed with the patient and the patient's daughter about the above. Thank you for the consultation. JOB# [id number] ALESSANDRO/MONALISA
[2017-11-08] MEDS ORDERED: CEPHULAC PR SCH (22:00)
[2017-11-08] MEDS ORDERED: LOVASTATIN 20 MG PO SCH (22:00)
[2017-11-08] MEDS ORDERED: INSULIN DETEMIR 20 UNIT SQ SCH (22:00)
[2017-11-08] MEDS: PRAVACHOL PO SCH (22:44)
[2017-11-08] MEDS: LANTUS SUB-Q SCH (22:45)
[2017-11-09 05:31] LABS: Basophils # (Auto) 0.1 K/mm3 (0.0-0.1); Basophils % (Auto) 0.8 % (0.0-1.8); Eosinophils # (Auto) 0.2 K/mm3 (0.0-0.4); Eosinophils % (Auto) 2.8 % (0.0-4.3); Hematocrit 27.3 % (30.3-42.9); Hemoglobin 8.9 gm/dl (10.1-14.3); Lymphocytes % (Auto) 24.2 % (13.4-35.0); Mean Corpuscular HGB Conc 32 % (30-34); Mean Corpuscular Volume 78 fl (79-97); Monocytes # (Auto) 0.7 K/mm3 (0.0-0.8); Monocytes % (Auto) 7.8 % (0.0-7.3); Platelet Count 300 K/mm3 (140-440); Red Blood Count 3.51 M/mm3 (3.65-5.03); Red Cell Distribution Width 18.9 % (13.2-15.2)
[2017-11-09 05:33] LABS: Mean Corpuscular Hemoglobin 25 pg (28-32)
[2017-11-09] MEDS: NACL 0.9% 1000 ML 1,000 ML IV SCH ×2 (05:49→09:43)
[2017-11-09 05:50] LABS: Calcium 8.2 mg/dL (8.4-10.2)
[2017-11-09] MEDS: CLEOCIN 600 MG/50 mL 600 MG/50 ML BAG IV SCH ×3 (05:50→23:53)
[2017-11-09] MEDS ORDERED: PEPCID IV NR (07:00)
--- NOTE | 2017-11-09 08:16 | Progress Note ---
Assessment and Plan 1) Gangrene of right foot Current Visit: Yes Status: Acute Plan to address problem: Local wound care. wound Cx IV antibiotic with Levaquin and Vanc for BKA today ID and Vascular surgery consulted (2) Anemia Current Visit: Yes Status: Chronic Qualifiers: Anemia type: unspecified type Qualified Code(s): D64.9 - Anemia, unspecified Plan to address problem: Had one unit of PRBC xfused. (3) PAD (peripheral artery disease) Current Visit: Yes Status: Chronic Plan to address problem: Severe Vascular surgery consulted (4) IDDM (insulin dependent diabetes mellitus) Current Visit: Yes Status: Chronic Plan to address problem: ADA diet Cont Insulin and coverage Check A1c (5) HTN (hypertension) Current Visit: Yes Status: Chronic Qualifiers: Hypertension type: essential hypertension Qualified Code(s): I10 - Essential (primary) hypertension Plan to address problem: Cont antihypertensives (6) GERD (gastroesophageal reflux disease) Current Visit: Yes Status: Chronic Qualifiers: Esophagitis presence: without esophagitis Qualified Code(s): K21.9 - Gastro -esophageal reflux disease without esophagitis Plan to address problem: Cont PPI's (7) CHF (congestive heart failure) Current Visit: Yes Status: Chronic Qualifiers: Heart failure type: combined systolic and diastolic Plan to address problem: Cont Torsemide (8) CAD (coronary artery disease) Current Visit: Yes Status: Chronic Qualifiers: Coronary Disease-Associated Artery/Lesion type: [place] artery [place] vs. transplanted heart: [place] heart Plan to address problem: will hold plavix for possible surgery (9) Peripheral neuropathy Current Visit: Yes Status: Chronic Qualifiers: Peripheral neuropathy type: polyneuropathy, unspecified Qualified Code(s): G62.9 - Polyneuropathy, unspecified Plan to address problem: Cont Gabapentin (10) Chronic pain Current Visit: Yes Status: Chronic Qualifiers: Chronic pain type: chronic pain syndrome Qualified Code(s): G89.4 - Chronic pain syndrome Plan to address problem: Cont Analgesics (11) DVT prophylaxis Current Visit: Yes Status: Acute Plan to address problem: On Heparin Subjective Date of service: 11/09/17 Principal diagnosis: Gnagrene right foot, DM, PAD Interval history: No new complaint. Pt lying quietly in bed for possible amputation left foot today Objective - Constitutional Vitals: Vital Signs - 12hr 03/11/08/17 11/09/17 22:00 22:44 05:08 Temperature 99.1 F Pulse Rate 74 Respiratory 20 20 Rate Blood Pressure 145/54 155/66 General appearance: Present: no acute distress, well-nourished - EENT Eyes: PERRL, EOM intact ENT: clear oral mucosa Ears: bilateral: normal - Neck Neck: supple, normal ROM - Respiratory Respiratory effort: normal Respiratory: bilateral: CTA - Cardiovascular Rhythm: regular Heart Sounds: Present: S1 & S2. Absent: gallop, rub Extremities: pulses intact, No edema, normal color, Full ROM - Gastrointestinal General gastrointestinal: Present: soft, non-tender, non-distended, normal bowel sounds - Genitourinary Female genitourinary: normal - Integumentary Integumentary: clear, warm, dry - Musculoskeletal Musculoskeletal: 1, strength equal bilaterally - Neurologic Neurologic: moves all extremities - Psychiatric Psychiatric: memory intact, appropriate mood/affect, intact judgment & insight - Labs CBC & Chem 7: 11/09/17 04:54 11/09/17 04:54 Labs: Abnormal lab results 11/08/17 11/08/17 11/08/17 Range/Units 00:59 07:49 11:25 RBC (3.65-5.03) M/mm3 Hgb (10.1-14.3) gm/dl Hct (30.3-42.9) % MCV (79-97) fl MCH (28-32) pg RDW (13.2-15.2) % Lyman % (Auto) (0.0-7.3) % Sodium (137-145) mmol/L Carbon Dioxide (22-30) mmol/L Creatinine (0.7-1.2) mg/dL Glucose (65-100) mg/dL POC Glucose 228 H 288 H (70-105) Calcium (8.4-10.2) mg/dL Crossmatch See Detail 11/08/17 11/08/17 11/09/17 Range/Units 16:06 22:06 04:54 RBC 3.51 L (3.65-5.03) M/mm3 Hgb 8.9 L (10.1-14.3) gm/dl Hct 27.3 L (30.3-42.9) % MCV 78 L (79-97) fl MCH 25 L (28-32) pg RDW 18.9 H (13.2-15.2) % Lyman % (Auto) 7.8 H (0.0-7.3) % Sodium (137-145) mmol/L Carbon Dioxide (22-30) mmol/L Creatinine (0.7-1.2) mg/dL Glucose (65-100) mg/dL POC Glucose 309 H 343 H (70-105) Calcium (8.4-10.2) mg/dL Crossmatch 11/09/17 Range/Units 04:54 RBC (3.65-5.03) M/mm3 Hgb (10.1-14.3) gm/dl Hct (30.3-42.9) % MCV (79-97) fl MCH (28-32) pg RDW (13.2-15.2) % Lyman % (Auto) (0.0-7.3) % Sodium 133 L (137-145) mmol/L Carbon Dioxide 21 L (22-30) mmol/L Creatinine 1.5 H (0.7-1.2) mg/dL Glucose 176 H (65-100) mg/dL POC Glucose (70-105) Calcium 8.2 L (8.4-10.2) mg/dL Crossmatch
[2017-11-09] MEDS: CATAPRES PO SCH ×3 (08:50→20:55)
[2017-11-09] MEDS ORDERED: MARCAINE 0.5% 0 ML INFILTRATI ONE (09:26)
--- NOTE | 2017-11-09 09:47 | XRay Report ---
AP CHEST: HISTORY: Short of breath Mild cardiomegaly, mild pulmonary venous congestion and small bilateral pleural effusions have developed since 08/17/17. IMPRESSION: Mild CHF which appears to be new.
[2017-11-09] MEDS ORDERED: NACL 0.9% 1000 ML 1,000 ML IV SCH (10:00)
[2017-11-09] MEDS: NEURONTIN PO SCH ×2 (10:00→23:52)
[2017-11-09] MEDS: PROTONIX PO SCH (10:00)
[2017-11-09] MEDS ORDERED: LASIX ONE (10:00)
[2017-11-09] MEDS: CEPHULAC PO SCH ×2 (10:00→23:51)
[2017-11-09] MEDS: ZAROXOLYN PO SCH (10:00)
[2017-11-09] MEDS: DEMADEX PO SCH (10:00)
[2017-11-09] MEDS ORDERED: NACL 0.9% 500 ML 500 ML IV NR (10:00)
[2017-11-09] MEDS: SODIUM CHLORIDE FLUSH SYRINGE 10 ML IV SCH ×2 (10:00→23:53)
[2017-11-09] MEDS: NORMODYNE PO SCH (10:00)
[2017-11-09] MEDS ORDERED: DIPRIVAN 10 MG/ML IV ONE (10:01)
[2017-11-09] MEDS ORDERED: SUBLIMAZE ONE (10:02)
[2017-11-09] MEDS ORDERED: XYLOCAINE CARDIAC IV ONE (10:03)
--- NOTE | 2017-11-09 11:10 | Post Operative Note ---
Pre-op diagnosis: gangrene right leg Post-op diagnosis: same Findings: good tissue quality, no immediate complications Procedure: right below knee amputation Anesthesia: GETA Surgeon: JACOB BIRMINGHAM Exhibit Designer: RALPH LIAO Estimated blood loss: other (100 ml) Pathology: list (right leg) Specimen disposition: to lab Condition: stable Disposition: PACU
--- NOTE | 2017-11-09 11:16 | Operative Report ---
Operative Report Operative Report: Date of procedure: 11/09/2017 Pre-operative diagnosis: Gangrene right lower extremity Post-operative diagnosis: Same Procedure name(s): Right below knee amputation Surgeon: Shelton Asif MD [employer] Developer: Dr Andreia Vale and [Zander Arthur, [facility]] Anesthesia: Gen. EBL: 100 mL Operative indication: Patient is a 77-year-old woman with gangrene of the right foot. Findings: Good tissue perfusion at the flap site. No immediate complications noted. Procedure: Patient was placed on the table in supine position. She was given appropriate anesthesia. The area of the right lower extremity was prepped with Clorpactin solution and draped in the usual sterile fashion. The leg was exsanguinated with an Esmarch bandage and the tourniquet was inflated on the thigh to 250 mmHg. This was later increased to 300 mmHg when bleeding was noted at the peroneal artery. A curvilinear incision was made over the lower portion of the calf about a hands breath below the tibial tuberosity. Circumferential dissection was carried out to identify the tibia and the fibula. The fibula was divided proximally and the cath. The tibia was divided with a beveled anterior portion. A rasp was used to smooth the bony surfaces. The remaining soft tissue was divided and the leg was sent to pathology for further examination. Meticulous hemostasis was obtained. The tourniquet was deflated and hemostasis was ensured. The wound was irrigated with saline solution. Closure was done in an anterior posterior fashion using interrupted Vicryl sutures. Skin rupal were applied. Sterile dressings were applied. The patient tolerated procedure well. Sponge, needle, and instrument counts were reported as correct. She was taken from the operating room to the recovery room in stable condition.
[2017-11-09] MEDS ORDERED: DILAUDID ONE (11:33)
[2017-11-09] MEDS ORDERED: ZOFRAN IV PRN (12:15)
[2017-11-09] MEDS ORDERED: DILAUDID IV PRN (12:15)
--- NOTE | 2017-11-09 12:18 | Post Anesthesia Evaluation ---
- Post Anesthesia Evaluation Patient Participated: Yes Airway Patent: Yes Stable Respiratory Function: Yes Nausea/Vomiting: No Temp > 96.8F: Yes Pain Manageable: Yes Adequeate Hydration: Yes Anesthesia Complications: No (no anesthetic complications. pt tolerated procedure well)
--- NOTE | 2017-11-09 12:18 | Anesthesia Day of Surgery ---
Anesthesia Day of Surgery - Day of Surgery Patient Examined: Yes Patient H&P Reviewed: Yes Patient is NPO: Yes
--- NOTE | 2017-11-09 12:22 | Anesthesia Consultation ---
Anesthesia Consult and Med Hx - Airway Anesthetic Teeth Evaluation: Good ROM Head & Neck: Adequate Mental/Hyoid Distance: Adequate Mallampati Class: Class II Intubation Access Assessment: Good - Pulmonary Exam CTA: Yes (CXR in preop demonstrated enlarged cardiac silouette consistent with CHF) - Pre-Operative Health Status ASA Pre-Surgery Classification: ASA4 Proposed Anesthetic Plan: General - Cardiovascular System Hx Hypertension: Yes (high cholesterol) Hx Coronary Artery Disease: (HX of carotic Stenosis) Hx Heart Attack/AMI: No (h/o CHF) Hx Peripheral Vascular Disease: Yes (right foot gangrene) - Gastrointestinal Hx Gastroesophageal Reflux Disease: Yes - Endocrine Hx Insulin Dependent Diabetes: Yes - Other Systems Hx Cancer: No
--- NOTE | 2017-11-09 12:24 | Progress Note ---
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 Reports "too much pain" Objective - Vital Signs Vital signs: Vital Signs - 12hr 11/09/17 11/09/17 05:08 09:10 Temperature 99.1 F 99.2 F Pulse Rate 80 Respiratory 20 22 Rate Blood Pressure 155/66 147/66 O2 Sat by Pulse 99 Oximetry - General Appearance General appearance: well-developed, well-nourished, other (appears to be in pain ) EENT: ATNC Respiratory: Present: Clear to Ascultation Cardiology: regular, S1S2 Gastrointestinal: normal, no tenderness, no distended Integumentary: no rash, warm and dry Neurologic: no focal deficit Psychiatric: cooperative - Lab 11/09/17 04:54 11/09/17 04:54 Most recent lab results Calcium 8.2 mg/dL (8.4-10.2) L 11/09/17 04:54
[2017-11-09] MEDS ORDERED: MORPHINE IV ONE ×4 (12:34→13:00)
--- NOTE | 2017-11-09 12:40 | XRay Report ---
AP CHEST: HISTORY: Congestive heart failure Mild cardiomegaly, mild pulmonary venous congestion and small pleural effusions have not significantly changed since earlier today at 0927 hours. IMPRESSION: Mild CHF.
[2017-11-09] MEDS: DILAUDID IV PRN ×6 (13:00→23:47)
[2017-11-09] MEDS ORDERED: APRESOLINE IV ONE (13:23)
[2017-11-09] MEDS: PERCOCET 5/325 PO PRN ×2 (15:09→23:52)
--- NOTE | 2017-11-09 17:32 | XRay Report ---
FINAL REPORT EXAM: XR KNEE 1-2V RT HISTORY: right BKA TECHNIQUE: Right knee two views PRIORS: None. FINDINGS: There is been below the knee amputation. Postoperative findings seen with surgical rupal present. No bony destructive changes are observed. No soft tissue gas identified. No evidence for effusion at the knee joint. Atherosclerotic vascular calcifications are noted. IMPRESSION: [id number] amputation with expected postoperative findings
[2017-11-09] MEDS ORDERED: LOVENOX SUB-Q SCH (22:00)
[2017-11-09] MEDS: PRAVACHOL PO SCH (23:51)
[2017-11-09] MEDS: LOVENOX SUB-Q SCH (23:52)
[2017-11-09] MEDS: LANTUS SUB-Q SCH (23:54)
[2017-11-10] MEDS: LANTUS SUB-Q SCH ×2 (00:02→22:16)
[2017-11-10] MEDS: CLEOCIN 600 MG/50 mL 600 MG/50 ML BAG IV SCH (05:24)
[2017-11-10 05:46] LABS: Hematocrit 25.8 % (30.3-42.9); Hemoglobin 8.3 gm/dl (10.1-14.3)
[2017-11-10 05:57] LABS: Calcium 8.4 mg/dL (8.4-10.2)
--- NOTE | 2017-11-10 07:30 | Progress Note ---
Assessment and Plan Assessment and plan: [place]:77 y/o AAF with multiple medical problems including HTN IDDM HLD CHF PN and Chronic pain sent from Dr Rodriguez office for Gangrene of Rt Foot and Possible BKA.Rt foot wound ongoing for a long time.Now Black and Tendons ewxposed on the footwith severly diminished pulses.Not amenable to revascularization. 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 wound Cx IV antibiotic with Levaquin and Vanc for BKA today ID and Vascular surgery consulted (2) Anemia Current Visit: Yes Status: Chronic Qualifiers: Anemia type: unspecified type Qualified Code(s): D64.9 - Anemia, unspecified Plan to address problem: Had one unit of PRBC xfused. (3) PAD (peripheral artery disease) Current Visit: Yes Status: Chronic Plan to address problem: Severe Vascular surgery consulted (4) IDDM (insulin dependent diabetes mellitus) Current Visit: Yes Status: Chronic Plan to address problem: ADA diet Cont Insulin and coverage Check A1c (5) HTN (hypertension) Current Visit: Yes Status: Chronic Qualifiers: Hypertension type: essential hypertension Qualified Code(s): I10 - Essential (primary) hypertension Plan to address problem: Cont antihypertensives (6) GERD (gastroesophageal reflux disease) Current Visit: Yes Status: Chronic Qualifiers: Esophagitis presence: without esophagitis Qualified Code(s): K21.9 - Gastro -esophageal reflux disease without esophagitis Plan to address problem: Cont PPI's (7) CHF (congestive heart failure) Current Visit: Yes Status: Chronic Qualifiers: Heart failure type: combined systolic and diastolic Plan to address problem: Cont Torsemide (8) CAD (coronary artery disease) Current Visit: Yes Status: Chronic Qualifiers: Coronary Disease-Associated Artery/Lesion type: [place] artery [place] vs. transplanted heart: [place] heart Plan to address problem: will hold plavix for possible surgery (9) Peripheral neuropathy Current Visit: Yes Status: Chronic Qualifiers: Peripheral neuropathy type: polyneuropathy, unspecified Qualified Code(s): G62.9 - Polyneuropathy, unspecified Plan to address problem: Cont Gabapentin (10) Chronic pain Current Visit: Yes Status: Chronic Qualifiers: Chronic pain type: chronic pain syndrome Qualified Code(s): G89.4 - Chronic pain syndrome Plan to address problem: Cont Analgesics (11) DVT prophylaxis Current Visit: Yes Status: Acute Plan to address problem: On Heparin History Interval history: Review of systems Constitutional: No fevers, no malaise, no joint pains CVS: No chest pain, no orthopnea, no dyspnea on exertion, no pedal edema GI: No abdominal pain, no diarrhea, no vomiting, no constipation Respiratory: No shortness of breath, no wheezing, no coughing Hospitalist Physical - Physical exam Narrative exam: General.: Appears well, no distress, nontoxic HEENT: Moist mucous membranes, extraocular muscles intact, no lymphadenopathy Neck: supple Cardiac: S1-S2 heard Lungs: clear to auscultation bilaterally Abdomen: soft , nontender, nondistended, bowel sounds positive Extremities: no edema clubbing or cyanosis Right BKA with clean dressing Skin: no rash or lesions Neurologic: no gross focal deficits Psych: appropriate behavior, appropriate mood, corporative, judgment intact - Constitutional Vitals: Temp Pulse Resp BP Pulse Ox 97.7 F 80 22 151/52 98 11/10/17 03:31 11/09/17 14:37 11/10/17 03:31 11/10/17 03:31 11/09/17 13:58 General appearance: Present: no acute distress, well-nourished Results - Labs CBC & Chem 7: 11/10/17 04:36 11/10/17 04:36 Labs: Laboratory Last Values WBC 8.4 K/mm3 (4.5-11.0) 11/09/17 04:54 RBC 3.51 M/mm3 (3.65-5.03) L 11/09/17 04:54 Hgb 8.3 gm/dl (10.1-14.3) L 11/10/17 04:36 Hct 25.8 % (30.3-42.9) L 11/10/17 04:36 MCV 78 fl (79-97) L 11/09/17 04:54 MCH 25 pg (28-32) L 11/09/17 04:54 MCHC 32 % (30-34) 11/09/17 04:54 RDW 18.9 % (13.2-15.2) H 11/09/17 04:54 Plt Count 300 K/mm3 (140-440) 11/09/17 04:54 Lymph % (Auto) 24.2 % (13.4-35.0) 11/09/17 04:54 Sharp % (Auto) 7.8 % (0.0-7.3) H 11/09/17 04:54 Eos % (Auto) 2.8 % (0.0-4.3) 11/09/17 04:54 Baso % (Auto) 0.8 % (0.0-1.8) 11/09/17 04:54 Lymph # 2.0 K/mm3 (1.2-5.4) 11/09/17 04:54 Sharp # 0.7 K/mm3 (0.0-0.8) 11/09/17 04:54 Eos # 0.2 K/mm3 (0.0-0.4) 11/09/17 04:54 Baso # 0.1 K/mm3 (0.0-0.1) 11/09/17 04:54 Seg Neutrophils % 64.4 % (40.0-70.0) 11/09/17 04:54 Seg Neutrophils # 5.4 K/mm3 (1.8-7.7) 11/09/17 04:54 Sodium 135 mmol/L (137-145) L 11/10/17 04:36 Potassium 4.7 mmol/L (3.6-5.0) 11/10/17 04:36 Chloride 97.8 mmol/L (98-107) L 11/10/17 04:36 Carbon Dioxide 23 mmol/L (22-30) 11/10/17 04:36 Anion Gap 19 mmol/L 11/10/17 04:36 BUN 16 mg/dL (7-17) 11/10/17 04:36 Creatinine 1.5 mg/dL (0.7-1.2) H 11/10/17 04:36 Estimated GFR 41 ml/min 11/10/17 04:36 BUN/Creatinine Ratio 11 % 11/10/17 04:36 Glucose 99 mg/dL (65-100) 11/10/17 04:36 POC Glucose 126 (70-105) H 11/09/17 23:34 Hemoglobin A1c 10.2 % (4-6) H 11/08/17 00:59 Calcium 8.4 mg/dL (8.4-10.2) 11/10/17 04:36 Total Bilirubin 0.30 mg/dL (0.1-1.2) 11/08/17 00:59 AST 8 units/L (5-40) 11/08/17 00:59 ALT 9 units/L (7-56) 11/08/17 00:59 Alkaline Phosphatase 172 units/L (35-129) H 11/08/17 00:59 Total Protein 6.1 g/dL (6.3-8.2) L 11/08/17 00:59 Albumin 2.9 g/dL (3.9-5) L 11/08/17 00:59 Albumin/Globulin Ratio 0.9 % 11/08/17 00:59 Blood Type A POSITIVE 11/08/17 00:59 Antibody Screen Negative 11/08/17 00:59 Crossmatch See Detail 11/08/17 00:59
[2017-11-10] MEDS: CATAPRES PO SCH ×3 (08:55→22:15)
[2017-11-10] MEDS: DILAUDID IV PRN ×4 (09:46→22:19)
[2017-11-10] MEDS: LEVAQUIN 750MG/150ML 750 MG/150 ML BAG IV SCH (09:47)
[2017-11-10] MEDS: CEPHULAC PO SCH ×2 (09:57→22:16)
[2017-11-10] MEDS: DEMADEX PO SCH (09:57)
[2017-11-10] MEDS: NEURONTIN PO SCH ×2 (09:57→22:16)
[2017-11-10] MEDS: SODIUM CHLORIDE FLUSH SYRINGE 10 ML IV SCH ×2 (09:58→22:18)
[2017-11-10] MEDS: ZAROXOLYN PO SCH (09:58)
[2017-11-10] MEDS: PROTONIX PO SCH (09:58)
[2017-11-10] MEDS: NORMODYNE PO SCH (10:04)
--- NOTE | 2017-11-10 11:26 | Query- Nutrition ---
Prosper Cervantes Date:__11/10/2017 [employer]/CDS:___Helen Phone#:___[phone] Exercise your independent professional judgment when responding to query. Questions asked do not imply a particular answer is desired or expected. We greatly appreciate your clarification on this issue. Clinical Documentation States: 77 Year old female was admitted on 11/07/2017 for Gangrene of Rt Foot and Possible BKA. Clinical Findings Show: Albumin (11/07): 2.8 Please select the most appropriate option 3 [] Mild Malnutrition [] Mild - Moderate Malnutrition [] Moderate - Severe Malnutrition [x] Severe Malnutrition Serum Albumin 2.8 to 3.4 g/dl or Pre-albumin 5 to 17 mg/dl1,2 Inadequate nutritional intake1,2,3,4 NPO > 5 days Weight loss: 5% in 1 month or 7.5% in 3 months or 10% in 6 months1, 3,4 BMI 16 to 18.4 or Weight <90% of ideal body weight1,2,3,4 Serum Albumin < 2.8 g/ dl1,2 Lymphocytes < 1500/ L2 Inadequate nutritional intake3, high stress e.g. major trauma, sepsis,pancreatitis, leo etc. Decubitus ulcers1,2, , skin breakdown2, easy hair pluckability2 Weight <80% standard for height2 Triceps skin fold <3 mm2 Mid-arm muscle circumference <15 cm2 Creatinine-height index <60% standard2 [ ] Cachexia [ ] Emaciated w/Malnutrition [ ] Other: [ ] Unable to determine [ ] Comment/Explanation: Present on Admission: [ x] Yes (Y) [ ] Clinically undeterminable (W) [ ] No (N) Please also document response in your Progress Notes and/or Discharge Summary and indicate if the condition was present on admission. MTDD
--- NOTE | 2017-11-10 13:03 | Progress Note ---
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 * Hypertension * Type II DM * Hx of recurrent hyperkalemia Plan: * Renal function is stable - continue current management * Currently receiving Torsemide 20mg daily - will resume home dose 60mg daily * Will order Dulcolax supp; continue Lactulose * Pain management per primary team * Monitor lytes * Needs tight glycemic control * Transfuse pRBC prn * Avoid potential nephrotoxins * Adjust medications for renal function * Daughter at bedside Subjective Date of service: 11/10/17 Principal diagnosis: Gnagrene right foot, DM, PAD Interval history: Patient c/o pain but better than yesterday; reports SOB - home medications resumed, she takes Torsemide 60mg w/ Metolazone 5mg daily; she also c/o constipation - no stool x 5 days. Objective - Vital Signs Vital signs: Vital Signs - 12hr 11/10/17 11/10/17 11/10/17 03:31 07:29 08:55 Temperature 97.7 F Pulse Rate Respiratory 22 20 Rate Blood Pressure 151/52 154/52 154/52 O2 Sat by Pulse Oximetry 11/10/17 11/10/17 11/10/17 09:46 09:59 10:04 Temperature Pulse Rate 80 80 Respiratory 20 Rate Blood Pressure 145/54 145/54 O2 Sat by Pulse 99 Oximetry 11/10/17 11/10/17 11/10/17 10:16 11:21 11:22 Temperature 98.6 F Pulse Rate 83 80 Respiratory 20 20 Rate Blood Pressure 145/54 O2 Sat by Pulse 99 99 Oximetry - General Appearance General appearance: well-developed, well-nourished EENT: ATNC Respiratory: Present: Decreased Breath Sounds Cardiology: regular, S1S2 Gastrointestinal: normal, no tenderness, no distended Integumentary: no rash, warm and dry Musculoskeletal: other (right BKA) Psychiatric: cooperative - Lab 11/10/17 04:36 11/10/17 04:36 Most recent lab results Calcium 8.4 mg/dL (8.4-10.2) 11/10/17 04:36
--- NOTE | 2017-11-10 13:42 | Progress Note ---
Assessment and Plan Assessment: 1) Right forefoot dry gangrene: from severe PVD s/p BKA on 11/09 2) DM-uncontrolled 3) JESU 4) Anemai 5) Hyponatremia Plan: -stop levaquin and clinda -no need for systemic abx I am signing off Thank you for your consultation, will follow up with you. Sylvia Myers MD Infectious Diseases Specialist [facility] ([facility]) M [phone] O [phone] Subjective Date of service: 11/10/17 Principal diagnosis: Gnagrene right foot, DM, PAD Interval history: Feels ok c/o surg site pain. NO fever. Current Antimicrobials: Levaquin Vancomycin Previous Antimicrobials: Objective - Exam Narrative Exam: General appearance: Alert in NAD, conversant Eyes: anicteric sclerae, moist conjunctivae; no lid-lag; PERRLA HENT: Atraumatic; oropharynx clear Neck: Trachea midline; supple, no thyromegaly or lymphadenopathy Lungs: CTA, with normal respiratory effort and no intercostal retractions CV: RRR, no murmurs Abdomen: Soft, non-tender; no masses or hepatosplenomegaly Extremities: right BKA with surg dressings ok Skin: Normal temperature, turgor and texture; no rash, ulcers or subcutaneous nodules Psych: Appropriate affect, alert and oriented to person, place and time. Neuro: alert and oriented x 3. Moving all extermities Lines: No CVL / PICC - Constitutional Vitals: Vital Signs Temp Pulse Resp BP Pulse Ox 98.6 F 80 20 145/54 99 11/10/17 11:21 11/10/17 11:22 11/10/17 11:21 11/10/17 11:21 11/10/17 11:22 Temperature -Last 24 Hours Temperature 98.6 F Temperature 97.7 F Temperature 98.6 F Temperature 97.9 F Temperature 98.8 F - Labs CBC & Chem 7: 11/10/17 04:36 11/10/17 04:36 Labs: Abnormal lab results 11/09/17 11/09/17 11/10/17 Range/Units 16:54 23:34 04:36 Hgb 8.3 L (10.1-14.3) gm/dl Hct 25.8 L (30.3-42.9) % Sodium (137-145) mmol/L Chloride (98-107) mmol/L Creatinine (0.7-1.2) mg/dL POC Glucose 240 H 126 H (70-105) 11/10/17 11/10/17 11/10/17 Range/Units 04:36 07:37 11:56 Hgb (10.1-14.3) gm/dl Hct (30.3-42.9) % Sodium 135 L (137-145) mmol/L Chloride 97.8 L (98-107) mmol/L Creatinine 1.5 H (0.7-1.2) mg/dL POC Glucose 146 H 228 H (70-105)
[2017-11-10] MEDS ORDERED: DULCOLAX PR ONE (14:47)
[2017-11-10] MEDS: OxyCONTIN PO SCH (17:31)
[2017-11-10] MEDS: PRAVACHOL PO SCH (22:16)
[2017-11-10] MEDS: LOVENOX SUB-Q SCH (22:18)
[2017-11-11] MEDS: OxyCONTIN PO SCH ×3 (01:30→17:14)
[2017-11-11] MEDS ORDERED: DEMADEX PO SCH (10:00)
--- NOTE | 2017-11-11 10:34 | Progress Note ---
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 Denies SOB. Objective - Vital Signs Vital signs: Vital Signs - 12hr 11/11/17 07:11 Temperature 99.7 F H Pulse Rate 84 Respiratory 18 Rate Blood Pressure 140/48 O2 Sat by Pulse 100 Oximetry - General Appearance General appearance: well-developed, well-nourished EENT: ATNC Respiratory: Present: Clear to Ascultation Cardiology: regular, S1S2 Gastrointestinal: normal, no tenderness, no distended Integumentary: no rash, warm and dry Neurologic: no focal deficit Musculoskeletal: other (no edema; right BKA) Psychiatric: cooperative - Lab 11/11/17 10:37 11/11/17 10:37 Most recent lab results Calcium 8.4 mg/dL (8.4-10.2) 11/10/17 04:36
[2017-11-11 11:10] LABS: Calcium 7.8 mg/dL (8.4-10.2)
[2017-11-11 11:11] LABS: Basophils % (Auto) 0.1 % (0.0-1.8); Eosinophils # (Auto) 0.2 K/mm3 (0.0-0.4); Eosinophils % (Auto) 1.1 % (0.0-4.3); Hematocrit 24.2 % (30.3-42.9); Hemoglobin 7.7 gm/dl (10.1-14.3); Lymphocytes % (Auto) 14.7 % (13.4-35.0); Mean Corpuscular HGB Conc 32 % (30-34); Mean Corpuscular Volume 77 fl (79-97); Monocytes # (Auto) 1.1 K/mm3 (0.0-0.8); Monocytes % (Auto) 8.6 % (0.0-7.3); Platelet Count 333 K/mm3 (140-440); Red Blood Count 3.13 M/mm3 (3.65-5.03); Red Cell Distribution Width 19.9 % (13.2-15.2)
[2017-11-11 11:12] LABS: Mean Corpuscular Hemoglobin 25 pg (28-32)
[2017-11-11] MEDS: CATAPRES PO SCH ×2 (11:16→15:42)
[2017-11-11] MEDS: NORMODYNE PO SCH (11:17)
[2017-11-11] MEDS: NEURONTIN PO SCH (11:19)
[2017-11-11] MEDS: ZAROXOLYN PO SCH (11:23)
[2017-11-11] MEDS: CEPHULAC PO SCH (11:23)
[2017-11-11] MEDS: PROTONIX PO SCH (11:23)
--- NOTE | 2017-11-11 13:19 | Progress Note ---
Hospitalist Physical - Constitutional Vitals: Temp Pulse Resp BP Pulse Ox 99.7 F H 100 H 18 140/48 100 11/11/17 07:11 11/11/17 11:17 11/11/17 07:11 11/11/17 11:17 11/11/17 10:00 General appearance: Present: no acute distress, well-nourished Results - Labs CBC & Chem 7: 11/11/17 10:37 11/11/17 10:37 Labs: Laboratory Last Values WBC 13.3 K/mm3 (4.5-11.0) H 11/11/17 10:37 RBC 3.13 M/mm3 (3.65-5.03) L 11/11/17 10:37 Hgb 7.7 gm/dl (10.1-14.3) L 11/11/17 10:37 Hct 24.2 % (30.3-42.9) L 11/11/17 10:37 MCV 77 fl (79-97) L 11/11/17 10:37 MCH 25 pg (28-32) L 11/11/17 10:37 MCHC 32 % (30-34) 11/11/17 10:37 RDW 19.9 % (13.2-15.2) H 11/11/17 10:37 Plt Count 333 K/mm3 (140-440) 11/11/17 10:37 Lymph % (Auto) 14.7 % (13.4-35.0) 11/11/17 10:37 [place] % (Auto) 8.6 % (0.0-7.3) H 11/11/17 10:37 Eos % (Auto) 1.1 % (0.0-4.3) 11/11/17 10:37 Baso % (Auto) 0.1 % (0.0-1.8) 11/11/17 10:37 Lymph # 2.0 K/mm3 (1.2-5.4) 11/11/17 10:37 [place] # 1.1 K/mm3 (0.0-0.8) H 11/11/17 10:37 Eos # 0.2 K/mm3 (0.0-0.4) 11/11/17 10:37 Baso # 0.0 K/mm3 (0.0-0.1) 11/11/17 10:37 Seg Neutrophils % 75.5 % (40.0-70.0) H 11/11/17 10:37 Seg Neutrophils # 10.1 K/mm3 (1.8-7.7) H 11/11/17 10:37 Sodium 129 mmol/L (137-145) L 11/11/17 10:37 Potassium 4.7 mmol/L (3.6-5.0) 11/11/17 10:37 Chloride 92.1 mmol/L (98-107) L 11/11/17 10:37 Carbon Dioxide 24 mmol/L (22-30) 11/11/17 10:37 Anion Gap 18 mmol/L 11/11/17 10:37 BUN 18 mg/dL (7-17) H 11/11/17 10:37 Creatinine 1.5 mg/dL (0.7-1.2) H 11/11/17 10:37 Estimated GFR 41 ml/min 11/11/17 10:37 BUN/Creatinine Ratio 12 % 11/11/17 10:37 Glucose 268 mg/dL (65-100) H 11/11/17 10:37 POC Glucose 306 (70-105) H 11/11/17 11:45 Hemoglobin A1c 10.2 % (4-6) H 11/08/17 00:59 Calcium 7.8 mg/dL (8.4-10.2) L 11/11/17 10:37 Total Bilirubin 0.30 mg/dL (0.1-1.2) 11/08/17 00:59 AST 8 units/L (5-40) 11/08/17 00:59 ALT 9 units/L (7-56) 11/08/17 00:59 Alkaline Phosphatase 172 units/L (35-129) H 11/08/17 00:59 Total Protein 6.1 g/dL (6.3-8.2) L 11/08/17 00:59 Albumin 2.9 g/dL (3.9-5) L 11/08/17 00:59 Albumin/Globulin Ratio 0.9 % 11/08/17 00:59 Blood Type A POSITIVE 11/08/17 00:59 Antibody Screen Negative 11/08/17 00:59 Crossmatch See Detail 11/08/17 00:59
[2017-11-11] MEDS: DILAUDID IV PRN (13:53)
[2017-11-11] MEDS: SODIUM CHLORIDE FLUSH SYRINGE 10 ML IV SCH (13:54)
[2017-11-11] MEDS ORDERED: D50W (25GM) Syringe IV PRN (14:06)
--- NOTE | 2017-11-11 14:06 | Discharge Summary ---
Providers - Providers Date of Admission: 11/07/17 16:12 Attending physician: STEPHAN SHUKLA MD 11/08/17 Consult to Case Management [CONS] Routine Services Needed at Discharge: Home Health Services [employer] Clerk Notified:: MARTHA 11/08/17 00:38 Consult to Physician [CONS] Routine Comment: Consulting Provider: JAZMIN HYLTON Physician Instructions: Reason For Exam: Gangrene Rt Foot 11/08/17 08:02 Consult to Physician [CONS] Routine Comment: Consulting Provider: ALEXANDER DOOLEY Physician Instructions: Reason For Exam: Rt foot Gangrene 11/08/17 08:59 Consult to Physician [CONS] Routine Comment: Spoke to: answering service @ 0900 Consulting Provider: [facility] Physician Instructions: [phone] (Dr. Henderson) Reason For Exam: Elevated Creatinine 11/09/17 Consult to Case Management [CONS] Routine Services Needed at Discharge: Other Notified:: Case Management Comment:: D/c planning Occupational Therapy Evaluate and Treat [CONS] Routine Comment: Reason For Exam: s/p amputation Physical Therapy Evaluation and Treat [CONS] Routine Comment: Reason For Exam: s/p amputation Primary care physician: KERVIN MIKE Hospitalization Hospital course: [place]:77 y/o AAF with multiple medical problems including HTN IDDM HLD CHF PN and Chronic pain sent from Dr Hylton office for Gangrene of Rt Foot and Possible BKA.Rt foot wound ongoing for a long time.Now Black and Tendons ewxposed on the footwith severly diminished pulses.Not amenable to revascularization. 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 wound Cx IV antibiotic with Levaquin and Vanc for BKA today ID and Vascular surgery consulted (2) Anemia Current Visit: Yes Status: Chronic Qualifiers: Anemia type: unspecified type Qualified Code(s): D64.9 - Anemia, unspecified Plan to address problem: Had one unit of PRBC xfused. (3) PAD (peripheral artery disease) Current Visit: Yes Status: Chronic Plan to address problem: Severe Vascular surgery consulted (4) IDDM (insulin dependent diabetes mellitus) Current Visit: Yes Status: Chronic Plan to address problem: ADA diet Cont Insulin and coverage Check A1c (5) HTN (hypertension) Current Visit: Yes Status: Chronic Qualifiers: Hypertension type: essential hypertension Qualified Code(s): I10 - Essential (primary) hypertension Plan to address problem: Cont antihypertensives (6) GERD (gastroesophageal reflux disease) Current Visit: Yes Status: Chronic Qualifiers: Esophagitis presence: without esophagitis Qualified Code(s): K21.9 - Gastro -esophageal reflux disease without esophagitis Plan to address problem: Cont PPI's (7) CHF (congestive heart failure) Current Visit: Yes Status: Chronic Qualifiers: Heart failure type: combined systolic and diastolic Plan to address problem: Cont Torsemide (8) CAD (coronary artery disease) Current Visit: Yes Status: Chronic Qualifiers: Coronary Disease-Associated Artery/Lesion type: [place] artery [place] vs. transplanted heart: [place]asta heart Plan to address problem: will hold plavix for possible surgery (9) Peripheral neuropathy Current Visit: Yes Status: Chronic Qualifiers: Peripheral neuropathy type: polyneuropathy, unspecified Qualified Code(s): G62.9 - Polyneuropathy, unspecified Plan to address problem: Cont Gabapentin (10) Chronic pain Current Visit: Yes Status: Chronic Qualifiers: Chronic pain type: chronic pain syndrome Qualified Code(s): G89.4 - Chronic pain syndrome Plan to address problem: Cont Analgesics (11) DVT prophylaxis Current Visit: Yes Status: Acute Plan to address problem: On Heparin Disposition: [id number]/[id number] Time spent for discharge: 33 minutes Core Measure Documentation - Palliative Care Palliative Care/ Comfort Measures: Not Applicable - Core Measures Any of the following diagnoses?: none Exam - Physical Exam Narrative exam: General.: Appears well, no distress, nontoxic HEENT: Moist mucous membranes, extraocular muscles intact, no lymphadenopathy Neck: supple Cardiac: S1-S2 heard Lungs: clear to auscultation bilaterally Abdomen: soft , nontender, nondistended, bowel sounds positive Extremities: no edema clubbing or cyanosis Right BKA with clean dressing Skin: no rash or lesions Neurologic: no gross focal deficits Psych: appropriate behavior, appropriate mood, corporative, judgment intact - Constitutional Vitals: Temp Pulse Resp BP Pulse Ox 99.7 F H 100 H 18 140/48 100 11/11/17 07:11 11/11/17 11:17 11/11/17 07:11 11/11/17 11:17 11/11/17 10:00 Plan Follow up with: KERVIN MIKE MD [Primary Care Provider] - 7 Days Prescriptions: oxyCODONE ER [OxyCONTIN ER TAB] 10 mg PO Q8H #7 tablet Oxycodone HCl/Acetaminophen [Percocet 10/325 mg] 2 tab PO Q6H PRN #14 tablet PRN Reason: Pain
--- NOTE | 2017-11-11 14:18 | Progress Note ---
Assessment and Plan Postoperative day #2 status post right below-knee amputation. Patient is doing well. The incision is healing well. Patient is okay to be transferred to rehabilitation from a vascular surgery standpoint. Subjective Date of service: 11/11/17 Principal diagnosis: Gnagrene right foot, DM, PAD Interval history: The patient is postoperative day #2 status post right lower knee amputation. She worked with physical therapy today and is having some pain but has no other complaints at this time. Objective - Constitutional Vitals: Vital Signs - 12hr 11/11/17 11/11/17 11/11/17 07:11 10:00 11:16 Temperature 99.7 F H Pulse Rate 84 100 H Respiratory 18 Rate Blood Pressure 140/48 140/48 O2 Sat by Pulse 100 100 Oximetry 11/11/17 11:17 Temperature Pulse Rate 100 H Respiratory Rate Blood Pressure 140/48 O2 Sat by Pulse Oximetry General appearance: Present: no acute distress - Neck Neck: supple - Respiratory Respiratory effort: normal - Breasts Breasts: deferred - Cardiovascular Rhythm: regular Extremities: abnormal (right below-knee amputation dressing removed and the incision is clean and dry and intact without any evidence of infection. The stump is well perfused without evidence of ischemia) - Gastrointestinal General gastrointestinal: Present: soft, non-tender - Integumentary Integumentary: clear, warm - Labs CBC & Chem 7: 11/11/17 10:37 11/11/17 10:37 Labs: Abnormal lab results 11/08/17 11/10/17 11/10/17 Range/Units 00:59 13:46 16:50 WBC (4.5-11.0) K/mm3 RBC (3.65-5.03) M/mm3 Hgb (10.1-14.3) gm/dl Hct (30.3-42.9) % MCV (79-97) fl MCH (28-32) pg RDW (13.2-15.2) % [place] % (Auto) (0.0-7.3) % [place] # (0.0-0.8) K/mm3 Seg Neutrophils % (40.0-70.0) % Seg Neutrophils # (1.8-7.7) K/mm3 Sodium (137-145) mmol/L Chloride (98-107) mmol/L BUN (7-17) mg/dL Creatinine (0.7-1.2) mg/dL Glucose (65-100) mg/dL POC Glucose 291 H 251 H (70-105) Calcium (8.4-10.2) mg/dL Crossmatch See Detail 11/10/17 11/11/17 11/11/17 Range/Units 22:51 07:17 10:37 WBC 13.3 H (4.5-11.0) K/mm3 RBC 3.13 L (3.65-5.03) M/mm3 Hgb 7.7 L (10.1-14.3) gm/dl Hct 24.2 L (30.3-42.9) % MCV 77 L (79-97) fl MCH 25 L (28-32) pg RDW 19.9 H (13.2-15.2) % [place] % (Auto) 8.6 H (0.0-7.3) % [place] # 1.1 H (0.0-0.8) K/mm3 Seg Neutrophils % 75.5 H (40.0-70.0) % Seg Neutrophils # 10.1 H (1.8-7.7) K/mm3 Sodium (137-145) mmol/L Chloride (98-107) mmol/L BUN (7-17) mg/dL Creatinine (0.7-1.2) mg/dL Glucose (65-100) mg/dL POC Glucose 51 L 181 H (70-105) Calcium (8.4-10.2) mg/dL Crossmatch 11/11/17 11/11/17 Range/Units 10:37 11:45 WBC (4.5-11.0) K/mm3 RBC (3.65-5.03) M/mm3 Hgb (10.1-14.3) gm/dl Hct (30.3-42.9) % MCV (79-97) fl MCH (28-32) pg RDW (13.2-15.2) % [place] % (Auto) (0.0-7.3) % [place] # (0.0-0.8) K/mm3 Seg Neutrophils % (40.0-70.0) % Seg Neutrophils # (1.8-7.7) K/mm3 Sodium 129 L (137-145) mmol/L Chloride 92.1 L (98-107) mmol/L BUN 18 H (7-17) mg/dL Creatinine 1.5 H (0.7-1.2) mg/dL Glucose 268 H (65-100) mg/dL POC Glucose 306 H (70-105) Calcium 7.8 L (8.4-10.2) mg/dL Crossmatch
[2017-11-11 14:35] VITALS: BP 157/50
[2017-11-11] MEDS ORDERED: HumaLOG SUB-Q SCH (16:30)
== END 2017-11-11 18:35 | DRG 239 ==
LOC: 2B-ACE 15:05 → UNDOADMIN 15:05 → 2B-ACE 16:12
PROVIDERS: ADMIT Internal Medicine; ATTEND Internal Medicine
PROC: 30233N1 Transfusion of Nonautologous Red Blood Cells into Peripheral Vein, Percutaneous Approach (ICD-10-PCS; 2017-11-08)
PROC: 0Y6H0Z1 Detachment at Right Lower Leg, High, Open Approach (ICD-10-PCS; principal; 2017-11-09)
DX: E11.52 Type 2 diabetes mellitus with diabetic peripheral angiopathy with gangrene (principal); E43 Unspecified severe protein-calorie malnutrition; I70.261 Atherosclerosis of native arteries of extremities with gangrene, right leg; I13.0 Hypertensive heart and chronic kidney disease with heart failure and stage 1 through stage 4 chronic kidney disease, or unspecified chronic kidney disease; N17.9 Acute kidney failure, unspecified; N18.3 Chronic kidney disease, stage 3 (moderate); G89.29 Other chronic pain; K21.9 Gastro-esophageal reflux disease without esophagitis; E78.5 Hyperlipidemia, unspecified; D64.9 Anemia, unspecified; I25.10 Atherosclerotic heart disease of native coronary artery without angina pectoris; E11.42 Type 2 diabetes mellitus with diabetic polyneuropathy; I50.9 Heart failure, unspecified; E78.00 Pure hypercholesterolemia, unspecified; Z82.49 Family history of ischemic heart disease and other diseases of the circulatory system; Z88.0 Allergy status to penicillin; Z88.8 Allergy status to other drugs, medicaments and biological substances; Z68.30 Body mass index [BMI] 30.0-30.9, adult
CPT/HCPCS: 36415; 71045; 80048; 80053; 82962; 83036; 85014; 85018; 85025; 86850; 86900; 86901; 86920; 88307; 88311; A9270-GY; J0360; J1170; J1650; J1815; J1940; J1956; J2001; J2270; J2405; J2704; J3010; J3370; J7030; J7040; P9016